=== PATIENT | male | born 1940 | race Caucasian/White ===

== ENCOUNTER 2017-01-02 06:43 | Outpatient (CLI) ==
[2015-09-02 12:59] VITALS: BMI 20.2
== END 2017-01-02 06:44 | disposition home or self-care (01) ==
LOC: CAR 06:43
PROVIDERS: ATTEND Internal Medicine
DX: R06.02 Shortness of breath (principal); J44.9 Chronic obstructive pulmonary disease, unspecified; I25.10 Atherosclerotic heart disease of native coronary artery without angina pectoris; I10 Essential (primary) hypertension
CPT/HCPCS: 93005; 93010

== ENCOUNTER 2017-01-06 06:45 | Outpatient (CLI) ==
[2015-09-02 12:59] VITALS: BMI 20.2
[2017-01-06] MEDS ORDERED: DOBUTAMINE 250 ML IV ONE (07:18)
[2017-01-06] MEDS ORDERED: ATROPINE SULFATE PFS ONE (07:18)
--- NOTE | 2017-01-06 10:22 | NM ---
EXAM: Myocardial perfusion imaging HISTORY: Shortness of breath COMPARISON: Myocardial imaging on 09/17/2013 showed no ischemia. Mildly prominent left ventricle. E jection fraction of 49%. TECHNIQUE: Patient was first injected 3.4 mCi of thallium 201 chloride intravenously while at rest. SPECT imaging of the heart was acquired. Patient was subsequently stressed using dobutamine protocol and injected 23.8 mCi of Tc99m Sestamibi intravenously. Another SPECT imaging of the heart was acqu ired. Gated cardiac study was performed. FINDINGS: Post stress images show normal left ventricular cavity size. Reduced perfusion is noted in volving the inferior wall, apex and contiguous septal wall. These areas show reperfusion. Anterior and lateral ceballos show normal perfusion. Left ventricular ejection fraction is 48% which shows no ch alo from previous examination. No definite wall motion abnormality is detected. IMPRESSION: 1. SPECT myocardial imaging shows mild degree of reversible ischemia involving the inferior wall, ap ex and contiguous septal wall. 2. Left ventricular ejection fraction of 48%. Previously it was 49%. No definite wall motion abnor mality.
== END 2017-01-06 06:46 | disposition home or self-care (01) ==
LOC: CAR 06:45
PROVIDERS: ATTEND Internal Medicine
DX: R06.02 Shortness of breath (principal); I25.10 Atherosclerotic heart disease of native coronary artery without angina pectoris; J44.9 Chronic obstructive pulmonary disease, unspecified; I10 Essential (primary) hypertension; Z01.810 Encounter for preprocedural cardiovascular examination

== ENCOUNTER 2017-03-07 14:06 | Outpatient (CLI) | payer OTHER ==
[2015-09-02 12:59] VITALS: BMI 20.2
== END 2017-03-07 14:07 | disposition home or self-care (01) ==
LOC: LAB 14:06
PROVIDERS: ATTEND Internal Medicine
DX: D64.9 Anemia, unspecified (principal)
CPT/HCPCS: 36415; 85025

== ENCOUNTER 2017-03-21 12:02 | Outpatient (CLI) ==
[2015-09-02 12:59] VITALS: BMI 20.2
--- NOTE | 2017-03-21 13:22 | US ---
EXAM: Bilateral lower extremity venous Doppler History: Bilateral lower extremity swelling. Technique: Multiple sonographic images through the bilateral lower extremities were obtained. Color duplex Doppler was used to interrogate vascular flow. Findings: The bilateral common femoral, profunda, superficial femoral, popliteal, peroneal, posterio r tibial and anterior tibial veins demonstrate spontaneous flow with normal compression and normal au gmentation. Partial flow with partial compression involving the distal right greater saphenous vein. Impression: 1. No sonographic evidence for deep venous thrombosis. 2. Superficial thrombophlebitis of the right greater saphenous vein.
== END 2017-03-21 12:03 | disposition home or self-care (01) ==
LOC: RAD 12:02
PROVIDERS: ATTEND Internal Medicine
DX: M79.605 Pain in left leg (principal); M79.604 Pain in right leg; M79.89 Other specified soft tissue disorders; I73.9 Peripheral vascular disease, unspecified; Z95.1 Presence of aortocoronary bypass graft

== ENCOUNTER 2017-04-28 12:44 | Outpatient (RCR) ==
[2017-04-28 13:20] VITALS: TEMP 98.4; BMI 21.6
[2017-05-14 13:23] VITALS: BP 130/58
== END 2017-05-17 ==
LOC: CAR.REHAB 12:44
PROVIDERS: ATTEND Internal Medicine
DX: Z95.1 Presence of aortocoronary bypass graft (principal)
CPT/HCPCS: 93798

== ENCOUNTER 2017-05-19 08:11 | Outpatient (RCR) ==
[2017-06-16 13:20] VITALS: BP 122/58
== END 2017-06-16 23:59 ==
LOC: CAR.REHAB 08:11
PROVIDERS: ATTEND Internal Medicine
DX: Z95.1 Presence of aortocoronary bypass graft (principal)
CPT/HCPCS: 93798

== ENCOUNTER 2017-06-17 07:54 | Outpatient (RCR) ==
[2017-07-09 13:22] VITALS: BP 132/54
== END 2017-07-17 23:59 ==
LOC: CAR.REHAB 07:54
PROVIDERS: ATTEND Internal Medicine
DX: Z95.1 Presence of aortocoronary bypass graft (principal)
CPT/HCPCS: 93798

== ENCOUNTER 2017-07-18 08:14 | Outpatient (RCR) ==
[2017-08-13 13:30] VITALS: BP 138/56
== END 2017-08-16 23:59 ==
LOC: CAR.REHAB 08:14
PROVIDERS: ATTEND Internal Medicine
DX: Z95.1 Presence of aortocoronary bypass graft (principal)
CPT/HCPCS: 93798

== ENCOUNTER 2017-08-18 07:22 | Outpatient (RCR) ==
[2017-09-15 13:21] VITALS: BP 118/56
== END 2017-09-16 23:59 ==
LOC: CAR.REHAB 07:22
PROVIDERS: ATTEND Internal Medicine
DX: Z95.1 Presence of aortocoronary bypass graft (principal)
CPT/HCPCS: 93798

== ENCOUNTER 2017-09-17 06:58 | Outpatient (RCR) ==
[2017-09-24 13:21] VITALS: BP 134/52
== END 2017-09-25 08:31 | disposition home or self-care (01) ==
LOC: CAR.REHAB 06:58
PROVIDERS: ATTEND Internal Medicine
DX: Z95.1 Presence of aortocoronary bypass graft (principal)
CPT/HCPCS: 93798

== ENCOUNTER 2019-07-22 13:19 | Observation (INO) ==
[2019-07-22] MEDS ORDERED: ATROPINE SULFATE PFS IVP PRN (13:42)
[2019-07-22] MEDS ORDERED: TYLENOL PO PRN (13:42)
[2019-07-22] MEDS ORDERED: NITROSTAT SL PRN (13:42)
[2019-07-22] MEDS ORDERED: VISTARIL INJ IM PRN (13:42)
[2019-07-22] MEDS ORDERED: NICODERM 14 MG TD SCH (14:00)
[2019-07-22 14:13] LABS: HEMATOCRIT 36.7 % (42.0-52.0)
[2019-07-22 14:14] VITALS: BMI 20.7
[2019-07-22] MEDS: TORADOL IVP SCH ×2 (15:12→21:08)
[2019-07-22] MEDS: NICODERM 21 MG TD SCH (15:12)
--- NOTE | 2019-07-22 15:12 | DI ---
EXAM: Frontal chest HISTORY: Shortness of breath FINDINGS: Compared to 09/11/2013. Cardiomegaly is slightly more noticeable. There is ectasia and a therosclerotic disease of the aorta again seen. Interval sternotomy wires. There is diffuse, chroni c appearing interstitial accentuation. Lungs are hyperinflated and there is relative lucency of the lung zones suggesting pulmonary emphysema. No acute infiltrates are seen. No vascular congestion. There is no consolidation, visible pleural fluid or pneumothorax. Bones reveal no acute fracture. IMPRESSION: Probable chronic obstructive pulmonary disease, correlate clinically. Cardiomegaly and atherosclerosis. No acute cardiopulmonary process.
[2019-07-22] MEDS: COREG PO SCH (17:05)
[2019-07-22] MEDS: ULTRAM PO SCH (20:04)
[2019-07-22] MEDS ORDERED: ULTRAM PO SCH ×2 (21:00)
[2019-07-22 21:36] VITALS: TEMP 97.8
[2019-07-23] MEDS: TORADOL IVP SCH (05:08)
[2019-07-23 05:32] VITALS: BP 144/82
[2019-07-23] MEDS: PROTONIX PO SCH ×2 (05:50→09:02)
[2019-07-23 05:57] LABS: HEMATOCRIT 39.3 % (42.0-52.0)
[2019-07-23] MEDS ORDERED: ASPIRIN EC PO SCH (08:30)
--- NOTE | 2019-07-23 08:59 | PCM.PROG ---
Attending Provider: ATTENDING PROVIDER: Dr. JORDON VIZCAINO This patient is seen with Adilia Romano, Nurse Practitioner. DATE OF SERVICE: 07/23/19 SUBJECTIVE: This 78 year old /WHITE M was hospitalized 07/22/19. The patient is lying in bed resting comfortably. He is alert. He reports his pain is con trolled with Ultram and Toradol. He is for renal ultrasound this morning. Discharge is pending appointment with [facility] at 11 a.m. REVIEW OF SYSTEMS: CONSTITUTIONAL: No night sweats. No fatigue, malaise, lethargy. No fever or chills. HEENT: Eyes: No visual changes. No eye pain. No eye discharge. ENT: No runny nose. No epistaxis. No sinus pain. No odynophagia. No congestion. RESPIRATORY: No cough, no congestion. No hemoptysis. No shortness of breath. CARDIOVASCULAR: No angina symptoms. No CHF symptoms. No atypical chest pain for CAD. No palpitations. No orthopnea.. GASTROINTESTINAL: No abdominal pain. No nausea or vomiting. No diarrhea or constipation. No hematemesis. No hematochezia. GENITOURINARY: No urgency. No frequency. No dysuria. No hematuria. No obstructive symptoms. No discharge. No pain. No significant abnormal bleeding. MUSCULOSKELETAL: Left hip pain. NEUROLOGICAL: Awake, alert, oriented to time, place and person. No headache. No neck pain. No syncope. No seizures. No dizziness. PSYCHIATRIC: Not anxious. No depression. No suicidal thoughts. No homicidal thoughts. SKIN: No rash. No lesions. No wounds. ENDOCRINE: No unexplained weight loss. No weight gain. HEMATOLOGIC/LYMPHATIC: No anemia. No purpura. No petechiae. No prolonged or excessive bleeding. No palpable lymph nodes. PHYSICAL EXAMINATION: GENERAL: The patient is awake, alert and oriented, lying in bed in no distress. VITAL SIGNS: Temperature 97.8 F, Pulse 69, Respiratory Rate 18, BP 144/82, Pulse Ox 93% HEENT: Head normocephalic, atraumatic. Eyes: Extraocular muscles are intact. Pupils are equal, round and reactive to light and accommodation. Ears: No lesions. Nose appeared normal. Throat: No exudate or erythema. NECK: Supple. No JVD, no carotid bruit. No lymphadenopathy or thyromegaly. LUNGS: Diminished breath sounds. Clear to auscultation. Percussion note normal. Chest symmetrical. HEART: S1, S2, no S3. No murmurs. No cyanosis or clubbing. No ascites. Pulses: Dorsalis pedis and posterior tibial pulses +1 to +2 both sides. ABDOMEN: Soft. Non-tender. Bowel sounds active. No CVA tenderness. No mass felt. EXTREMITIES: No edema. Full range of motion of all extremities, equal. NEUROLOGIC: No focal deficit. Cranial nerves II through XII are grossly intact. No headache, no double vision or headache. SKIN: Not dry. Intact. Turgor-normal. LYMPHATIC: No palpable lymph nodes/no lymphedema. MUSCULOSKELETAL: Normal joints with no swelling. Muscle tone is normal. LAB REVIEW: 07/23/19 05:25 07/23/19 05:25 07/23/19 05:25: Sodium 136.9, Potassium 4.44, Chloride 102.9, Carbon Dioxide 30.4 H, Anion Gap 8.04, BUN 26.1 H, Creatinine 1.23 H, Estimated GFR (MDRD) 57.00, BUN/Creatinine Ratio 21.21, Glucose 93.9, Calcium 10.21 H, Total Bilirubin 0.52, AST 27.1, ALT 8.4, Alkaline Phosphatase 83.5, Total Protein 7.21, Albumin 3.85, Globulin 3.36, Albumin/Globulin Ratio 1.14 07/23/19 05:25: WBC 8.53, RBC 4.13 L, Hgb 12.8 L, Hct 39.3 L, MCV 95.2 H, MCH 31.0, MCHC 32.6, RDW Coeff of Kevin 14.8, Plt Count 271, Immature Gran % (Auto) 0.4, Neut % (Auto) 60.3, Lymph % (Auto) 23.1, Turner % (Auto) 9.3, Eos % (Auto) 5.5, Baso % (Auto) 1.4, Neut # (Auto) 5.2, Lymph # (Auto) 2.0, Turner # (Auto) 0.8, Eos # (Auto) 0.5, Baso # (Auto) 0.1, Immature Gran # (Auto) 0.0 07/22/19 21:45: Sodium 138.2, Potassium 4.70, Chloride 104.0, Carbon Dioxide 31.2 H, Anion Gap 7.70, BUN 27.6 H, Creatinine 1.42 H, Estimated GFR (MDRD) 48.00, BUN/Creatinine Ratio 19.43, Glucose 85.5, Calcium 10.42 H, Total Bilirubin 0.42, AST 20.7, ALT 7.9, Alkaline Phosphatase 81.7, Total Creatine Kinase 40.7 L, Troponin I < 0.012, Total Protein 7.11, Albumin 3.87, Globulin 3.24, Albumin/Globulin Ratio 1.19, TSH 1.330 07/22/19 17:30: Urine Color Yellow, Urine Clarity Clear, Urine pH 7.0, Ur Specific [place] 1.020, Urine Protein Negative, Urine Glucose (UA) Negative, Urine Ketones Negative, Urine Blood Trace-intact H, Urine Nitrite Negative, Urine Bilirubin Negative, Urine Urobilinogen 0.2, Ur Leukocyte Esterase Negative, Urine Microscopic RBC 2-5, Urine Microscopic WBC 0-2, Ur Squamous Epith Cells 2-5, Urine Mucus Trace 07/22/19 14:07: Thyroxine (T4) 7.4 07/22/19 14:07: Total Creatine Kinase 39.0 L, Troponin I < 0.012 07/22/19 14:07: WBC 9.31, RBC 3.83 L, Hgb 12.1 L, Hct 36.7 L, MCV 95.8 H, MCH 31.6 H, MCHC 33.0, RDW Coeff of Kevin 15.2 H, Plt Count 244, Immature Gran % (Auto) 0.4, Neut % (Auto) 61.7, Lymph % (Auto) 24.1, Turner % (Auto) 8.2, Eos % (Auto) 4.5, Baso % (Auto) 1.1, Neut # (Auto) 5.8, Lymph # (Auto) 2.2, Turner # (Auto) 0.8, Eos # (Auto) 0.4, Baso # (Auto) 0.1, Immature Gran # (Auto) 0.0 ASSESSMENT: Please see below. 1. NONDISPLACED SUBCAPITAL FEMORAL NECK FRACTURE/FALL TWO WEEKS AGO 2. BILATERAL HIP PAIN LEFT WORSE THAN RIGHT STATUS POST FALL 07/07/19. 3. ABNORMAL RIGHT KIDNEY FINDINGS 4. HYPOKALEMIA 5. FLU SYNDROME 6. MILD HEMATOMA RIGHT NECK 7. STATUS POST RIGHT CAROTID SURGERY - DR. PETERS 03/05/19 8. STATUS POST CAROTID ENDARTERECTOMY - DR. PETERS 12/30/18 9. CARDIAC CATHETERIZATION 11/27/18 NORMAL - DR. PEGUERO 10. CABG'S 02/02 11. ABNORMAL STRESS TEST 12. BILATERAL SEVERE CAROTID ARTERY STENOSIS 13. STATUS POST ILIAC ARTERY STENT - DR. PETERS 14. OSTEOARTHRITIS KNEE 15. RENAL STENTS 16. DEPRESSION 17. DYSLIPIDEMIA 18. HYPERTENSION 19. CORONARY ARTERY DISEASE 20. CHRONIC BRONCHITIS 21. SMOKER 22. COPD, SEVERE 23. FORGETFULNESS 24. S/P A/A 25. BILATERAL SCIATICA 26. C-SPINE OSTEOARTHRITIS 27. CLAUDICATION 28. HISTORY OF AORTIC BYPASS 2009 29. STATUS POST BACK SURGERY . PTCA INSUFFICIENCY, COLOR 2009 PLAN: 1. Renal ultrasound today. 2. Anticipate discharge today. 3. Continue pain medications. 4. Appt with [facility] at 11 a.m. Plan and coordination of the patient's care discussed in the presence of Pharmacist'S Aide and nurse. CONDITION: Stable SCRIBED BY: EVA LINDA Machine Filler Servicer scribed while in presence of service performed by Dr. Vizcaino/Adilia Romano APRN on 07/23/19 ([id number])
[2019-07-23] MEDS ORDERED: NON-FORMULARY MEDICATION (Esomeprazole Magnesium [Nexium] 40 MG) PO SCH (09:00)
[2019-07-23] MEDS ORDERED: LIPITOR PO SCH (09:00)
[2019-07-23] MEDS ORDERED: ZOLOFT PO SCH (09:00)
[2019-07-23] MEDS ORDERED: PLAVIX PO SCH (09:00)
[2019-07-23] MEDS: ULTRAM PO SCH (09:02)
[2019-07-23] MEDS: COREG PO SCH (09:02)
[2019-07-23] MEDS: NICODERM 21 MG TD SCH (09:04)
--- NOTE | 2019-07-23 09:16 | HP ---
DATE OF SERVICE: 07/22/19 HISTORY OF PRESENT ILLNESS: 78-year-old male wiht abnormal left nondisplaced subcapital fracture of neck of femur. Abnormal right kidney CT scan report. Complains of pain in left hip, 2 to 6 on scale of 1-10. Two weeks ago was seen at [facility] ER. X- ray left hip is okay. No signs or symptoms of CHF/CAD. PAST MEDICAL HISTORY: History of hypokalemia COPD Hypertension Coronary artery disease Osteoarthritis knee Forgetfulness PAST SURGICAL HISTORY: Gallbladder Back/neck surgeries times two Heart stents Right carotid surgery Cardiac cath 11/27/18 CABG 02/02 Aorta bypass Renal stents REVIEW OF SYSTEMS: CONSTITUTIONAL: No night sweats. No fatigue, malaise, lethargy. No fever or chills. HEENT: Eyes: No visual changes. No eye pain. No eye discharge. ENT: No runny nose. No epistaxis. No sinus pain. No sore throat. No odynophagia. No ear pain. No congestion. RESPIRATORY: No cough, no congestion. No hemoptysis. No shortness of breath. CARDIOVASCULAR: No angina symptoms. No CHF symptoms. No atypical chest pain for CAD. No palpitations. No PND. No orthopnea. GASTROINTESTINAL: No abdominal pain. No nausea or vomiting. No diarrhea or constipation. No hematemesis. No hematochezia. GENITOURINARY: No urgency. No frequency. No dysuria. No hematuria. No obstructive symptoms. No discharge. No pain. No significant abnormal bleeding. MUSCULOSKELETAL: Osteoarthritic pain. . NEUROLOGICAL: No headache. No neck pain. No syncope. No seizures. No dizziness. PSYCHIATRIC: Not anxious. No depression. No suicidal thoughts. No homicidal thoughts. SKIN: No rash. No lesions. No wounds. ENDOCRINE: No unexplained weight loss. No weight gain. HEMATOLOGIC/LYMPHATIC: No anemia. No purpura. No petechiae. No prolonged or excessive bleeding. No palpable lymph nodes. PERSONAL/FAMILY/SOCIAL HISTORY: ; four healthy children; retired. No drug use. Occasional alcohol use. Smoking history - two packs per day. Family history: Father , strokes, heart. Mother , CA of lung and heart. No brothers. Two sisters. . MEDICATIONS: (HOME) ASA 81 mg one daily Lipitor 20 mg one daily Coreg 12.5 mg b.i.d. Plavix 75 mg one daily Nexium 40 mg one daily Zoloft 100 mg one daily Keflex 250 mg one t.i.d. Oxycodone 5/325 mg one q.6 hr p.r.n. Tramadol 50 mg b.i.d. #20 ALLERGIES: CODEINE, MORPHINE, LISINOPRIL, LOSARTAN, ATIVAN, ARICEPT PHYSICAL EXAMINATION: VITAL SIGNS: Pulse 67, BP 138/80, temperature 98.1, 02 sat 98%. Weight 150.4 lbs, Height 5'10". BMI 21.6. HEENT: Head normocephalic, atraumatic. Eyes: Extraocular muscles are intact. Pupils are equal, round and reactive to light and accommodation. Ears: No lesions. Nose appeared normal. Throat: No exudate or erythema. NECK: Supple. No JVD, no carotid bruit. No lymphadenopathy or thyromegaly. LUNGS: Clear to auscultation. Percussion note normal. Chest symmetrical. HEART: S1, S2, no S3. No murmur. No cyanosis or clubbing. No ascites. Pulses: Dorsalis pedis and posterior tibial pulses +1 to +2 bilaterally. ABDOMEN: Soft. Nontender. Bowel sounds active. No CVA tenderness. No mass felt. EXTREMITIES: No edema. Full range of motion of all extremities, equal. RECTAL: Prostate 2/20 (3.6). Colonoscopy: Dr. Schaffer, refused. NEUROLOGIC: No focal deficit. Cranial nerves II through XII are grossly intact. No headache, no double vision or headache. SKIN: Not dry. Intact. Turgor - normal. LYMPHATIC: No palpable lymph nodes/no lymphedema. MUSCULOSKELETAL: Normal joints with no swelling. Muscle tone is normal. ASSESSMENT: 1. NONDISPLACED SUBCAPITAL FEMORAL NECK FRACTURE/FALL TWO WEEKS AGO 2. BILATERAL HIP PAIN LEFT WORSE THAN RIGHT STATUS POST FALL 07/07/19. 3. ABNORMAL RIGHT KIDNEY FINDINGS 4. HYPOKALEMIA 5. FLU SYNDROME 6. MILD HEMATOMA RIGHT NECK 7. STATUS POST RIGHT CAROTID SURGERY - DR. PETERS 03/05/19 8. STATUS POST CAROTID ENDARTERECTOMY - DR. PETERS 12/30/18 9. CARDIAC CATHETERIZATION 11/27/18 NORMAL - DR. PEGUERO 10. CABG'S 02/02 11. ABNORMAL STRESS TEST 12. BILATERAL SEVERE CAROTID ARTERY STENOSIS 13. STATUS POST ILIAC ARTERY STENT - DR. PETERS 14. OSTEOARTHRITIS KNEE 15. RENAL STENTS 16. DEPRESSION 17. DYSLIPIDEMIA 18. HYPERTENSION 19. CORONARY ARTERY DISEASE 20. CHRONIC BRONCHITIS 21. SMOKER 22. COPD, SEVERE 23. FORGETFULNESS 24. S/P A/A 25. BILATERAL SCIATICA 26. C-SPINE OSTEOARTHRITIS 27. CLAUDICATION 28. HISTORY OF AORTIC BYPASS 2009 29. STATUS POST BACK SURGERY . PTCA INSUFFICIENCY, COLOR 2009 PLAN: 1. Admit. 2. Routine telemetry orders. 3. Toradol 15 mg IV 8 hours p.r.n. 4. Daily CBC, CMP. 5. TSH, T4. 6. US of right kidney. 7. Tramadol 50 mg p.o. t.i.d. daily. 8. Bedrest. 9. Up and about with help. 10. Continue all home medications 11. Orthopaedic consultation (clinic). TIME SPENT: More than 70 minutes. SANIYAD
--- NOTE | 2019-07-23 09:58 | CM.DICTOOL ---
ADMISSION: 07/22/19 13:19 DISCHARGE: JULY 23, 2019 DATE OF SERVICE: 07/23/19 FINAL DIAGNOSIS NONDISPLACED SUBCAPITAL LEFT FEMORAL NECK FRACTURE (PER PELVIS CT ON 07/20/2019) S/P FALL 07/05/2019) PAIN MANAGEMENT (HIP PAIN) MULTIPLE CYSTIC LESIONS, RIGHT RENAL DEGENERATIVE CHANGES LUMBAR SPINE OSTEOARTHRITIS HYPERTENSION COPD, SEVERE DYSLIPIDEMIA CAD DEPRESSION TOBACCO USE RIGHT HEMILAMINECTOMY, L5 AORTO-ILIAC ENDOVASCULAR STENT CAROTID ENDARTERECTOMY, BILATERAL 2019 (DR. PETERS) CABG, 2017 CARDIAC CATH, 2019 (NORMAL) )DR. PEGUERO) LAST VITALS Temp Pulse Resp BP Pulse Ox 97.8 F 69 18 144/82 H 93 L 07/23/19 05:31 07/23/19 05:31 07/23/19 05:31 07/23/19 05:31 07/23/19 05:31 TAKE THESE MEDICATIONS AT HOME Aspirin (Aspirin Ec) 81 mg PO DAILYWM [facility] Last Admin: 07/23/19 09:01 Dose: 81 mg Documented by: Atorvastatin Calcium (Lipitor) 20 mg PO DAILY [facility] Last Admin: 07/23/19 09:02 Dose: 20 mg Documented by: Carvedilol (Coreg) 12.5 mg PO BIDWM [facility] Last Admin: 07/23/19 09:02 Dose: 12.5 mg Documented by: Clopidogrel Bisulfate (Plavix) 75 mg PO DAILY [facility] Last Admin: 07/23/19 09:02 Dose: 75 mg Documented by: Esomeprazole Magnesium ( Nexium) 40 mg PO QDAC [facility] Last Admin: 07/23/19 09:02 Dose: 40 mg Documented by: Sertraline HCl (Zoloft) 100 mg PO DAILY [facility] Last Admin: 07/23/19 09:01 Dose: 100 mg Documented by: Tramadol HCl (Ultram) 50 mg PO BID [facility] Last Admin: 07/23/19 09:02 Dose: 50 mg Documented by: ALLERGIES codeine Adverse Reaction (Mild, Verified 07/07/19 08:47) donepezil [From Aricept] Adverse Reaction (Verified 07/22/19 14:05) gabapentin Adverse Reaction (Verified 07/22/19 14:10) lisinopril Adverse Reaction (Verified 07/22/19 14:05) lorazepam [From Ativan] Adverse Reaction (Verified 07/22/19 14:05) losartan Adverse Reaction (Verified 07/22/19 14:05) morphine Adverse Reaction (Verified 07/22/19 14:05) NO MEDICATION CHANGES NEW PRESCRIPTIONS: NO NEW PRESCRIPTIONS (RECEIVED RX FOR ULTRAM PRIOR TO ADMISSION) SMOKING: ADVISED REGARDING SMOKING CESSATION DISEASE SPECIFIC EDUCATION: APPOINTMENT TODAY WITH [facility] FOLLOW INSTRUCTIONS FOR ACTIVITY GIVEN BY [facility] APPOINTMENT FOR OUTPATIENT RENAL ULTRASOUND APPOINTMENT WITH DR. DAVILA LAB REVIEW: 07/23/19 05:25 07/23/19 05:25 07/23/19 05:25: Sodium 136.9, Potassium 4.44, Chloride 102.9, Carbon Dioxide 30.4 H, Anion Gap 8.04, BUN 26.1 H, Creatinine 1.23 H, Estimated GFR (MDRD) 57.00, BUN/Creatinine Ratio 21.21, Glucose 93.9, Calcium 10.21 H, Total Bilirubin 0.52, AST 27.1, ALT 8.4, Alkaline Phosphatase 83.5, Total Protein 7.21, Albumin 3.85, Globulin 3.36, Albumin/Globulin Ratio 1.14 07/23/19 05:25: WBC 8.53, RBC 4.13 L, Hgb 12.8 L, Hct 39.3 L, MCV 95.2 H, MCH 31.0, MCHC 32.6, RDW Coeff of Kevin 14.8, Plt Count 271, Immature Gran % (Auto) 0.4, Neut % (Auto) 60.3, Lymph % (Auto) 23.1, Dickinson % (Auto) 9.3, Eos % (Auto) 5.5, Baso % (Auto) 1.4, Neut # (Auto) 5.2, Lymph # (Auto) 2.0, Dickinson # (Auto) 0.8, Eos # (Auto) 0.5, Baso # (Auto) 0.1, Immature Gran # (Auto) 0.0 07/22/19 21:45: Sodium 138.2, Potassium 4.70, Chloride 104.0, Carbon Dioxide 31.2 H, Anion Gap 7.70, BUN 27.6 H, Creatinine 1.42 H, Estimated GFR (MDRD) 48.00, BUN/Creatinine Ratio 19.43, Glucose 85.5, Calcium 10.42 H, Total Bilirubin 0.42, AST 20.7, ALT 7.9, Alkaline Phosphatase 81.7, Total Creatine Ki nase 40.7 L, Troponin I < 0.012, Total Protein 7.11, Albumin 3.87, Globulin 3.24, Albumin/Globulin Ratio 1.19, TSH 1.330 07/22/19 17:30: Urine Color Yellow, Urine Clarity Clear, Urine pH 7.0, Ur Specific [place] 1.020, Urine Protein Negative, Urine Glucose (UA) Negative, Urine Ketones Negative, Urine Blood Trace-intact H, Urine Nitrite Negative, Urine Bilirubin Negative, Urine Urobilinogen 0.2, Ur Leukocyte Esterase Negative, Urine Microscopic RBC 2-5, Urine Microscopic WBC 0-2, Ur Squamous Epith Cells 2-5, Urine Mucus Trace 07/22/19 14:07: Thyroxine (T4) 7.4 07/22/19 14:07: Total Creatine Kinase 39.0 L, Troponin I < 0.012 07/22/19 14:07: WBC 9.31, RBC 3.83 L, Hgb 12.1 L, Hct 36.7 L, MCV 95.8 H, MCH 31.6 H, MCHC 33.0, RDW Coeff of Kevin 15.2 H, Plt Count 244, Immature Gran % (Auto) 0.4, Neut % (Auto) 61.7, Lymph % (Auto) 24.1, Dickinson % (Auto) 8.2, Eos % (Auto) 4.5, Baso % (Auto) 1.1, Neut # (Auto) 5.8, Lymph # (Auto) 2.2, Dickinson # (Auto) 0.8, Eos # (Auto) 0.4, Baso # (Auto) 0.1, Immature Gran # (Auto) 0.0 PLAN: DISCHARGE TODAY WITH DIET: REGULAR TOLERATED ACTIVITY: LIMIT AMBULATION FOR NOW; USE WALKER WHEN WALKING SHORT DISTANCES IN THE HOME FOLLOW ACTIVITY LIMITATIONS/PLAN SUGGESTED BY [facility] AN APPOINTMENT IS SCHEDULED FOR JULY 23, 2019 AT 11 AM AT [facility] WITH [facility]. AN APPOINTMENT IS SCHEDULED FOR July AT 9:30 AM AT [facility] FOR AN OUTPATIENT RENAL ULTRASOUND AN APPOINTMENT IS SCHEDULED FOR July AT 2:[address] DAVILA/MARIOLA IRVING APRN/OHANG JORDAN APRN CODE STATUS: FULL CODE MR. SEO IS ALERT AND ORIENTED X 4. HE IS SLIGHTLY HARD OF HEARING AND IS FORGETFUL. HE IS AWARE AND AGREEABLE TO DISCHARGE PLANS FOR THIS MORNING. HE IS AWARE AND AGREEABLE FOR OFFICE APPOINTMENT TODAY WITH [facility] IN [place], [place]. MRS. SEO IS AWARE OF APPOINTMENT AND REPORTS SHE IS FAMILIAR WITH THE LOCATION OF THE [facility]. SHE WILL PROVIDE TRANSPORTATION . MR. SEO IS INDEPENDENT WITH ADL'S. AT THIS TIME, HE IS USING A ROLLING WALKER FOR SHORT DISTANCE AMBULATION. HE REQUIRES ASSISTANCE OF ONE. HE DEMONSTRATES WEAKNESS TO THE LEFT LEG AND A SHUFFLING GAIT. SKIN CONDITION IS GOOD. HYDRATION STATUS IS GOOD. MEAL INTAKES ARE GOOD AT 50-100%. HE IS CONTINENT OF URINE AND BOWEL; USING THE URINAL AT THE BEDSIDE FOR VOIDING. MD ARMANDO VALDIVIA APRN
--- NOTE | 2019-07-23 12:40 | DS ---
DATE OF SERVICE: 07/23/2019 FINAL DIAGNOSIS: 1. NONDISPLACED SUBCAPITAL LEFT FEMORAL NECK FRACTURE (PER PELVIS CT ON 07/20/2019) 2. S/P FALL 07/05/2019) 3. PAIN MANAGEMENT (HIP PAIN) 4. MULTIPLE CYSTIC LESIONS, RIGHT RENAL 5. DEGENERATIVE CHANGES LUMBAR SPINE 6. OSTEOARTHRITIS 7. HYPERTENSION 8. COPD, SEVERE 9. DYSLIPIDEMIA 10.CAD 11.DEPRESSION 12.TOBACCO USE 13. RIGHT HEMILAMINECTOMY, L5 14. AORTO-ILIAC ENDOVASCULAR STENT 15. CAROTID ENDARTERECTOMY, BILATERAL 2019 (DR. PETERS) 16. CABG, 2016 17. CARDIAC CATH, 2019 (NORMAL) )DR. PEGUERO) LAST VITALS: Temp Pulse Resp BP Pulse Ox 97.8 F 69 18 144/82 H 93 L 07/23/19 05:31 07/23/19 05:31 07/23/19 05:31 07/23/19 05:31 07/23/19 05:31 DISCHARGE INSTRUCTIONS: DISCHARGE TODAY WITH . AN APPOINTMENT IS SCHEDULED FOR JULY 23, 2019 AT 11 AM AT [facility] WITH [facility] AN APPOINTMENT IS SCHEDULED FOR July AT 9:30 AM AT [facility] FOR AN OUTPATIENT RENAL ULTRASOUND. AN APPOINTMENT IS SCHEDULED FOR July AT 2:[address] DAVILA/MARIOLA IRVING APRN/HOANG JORDAN APRN. CODE STATUS: FULL CODE. TAKE THESE MEDICATIONS AT HOME: Aspirin (Aspirin Ec) 81 mg PO DAILYWM [facility] Last Admin: 07/23/19 09:01 Dose: 81 mg Documented by: Atorvastatin Calcium (Lipitor) 20 mg PO DAILY [facility] Last Admin: 07/23/19 09:02 Dose: 20 mg Documented by: Carvedilol (Coreg) 12.5 mg PO BIDWM [facility] Last Admin: 07/23/19 09:02 Dose: 12.5 mg Documented by: Clopidogrel Bisulfate (Plavix) 75 mg PO DAILY [facility] Last Admin: 07/23/19 09:02 Dose: 75 mg Documented by: Esomeprazole Magnesium ( Nexium) 40 mg PO QDAC [facility] Last Admin: 07/23/19 09:02 Dose: 40 mg Documented by: Sertraline HCl (Zoloft) 100 mg PO DAILY [facility] Last Admin: 07/23/19 09:01 Dose: 100 mg Documented by: Tramadol HCl (Ultram) 50 mg PO BID JOHN Last Admin: 07/23/19 09:02 Dose: 50 mg Documented by: ALLERGIES: codeine Adverse Reaction (Mild, Verified 07/07/19 08:47) donepezil [From Aricept] Adverse Reaction (Verified 07/22/19 14:05) gabapentin Adverse Reaction (Verified 07/22/19 14:10) lisinopril Adverse Reaction (Verified 07/22/19 14:05) lorazepam [From Ativan] Adverse Reaction (Verified 07/22/19 14:05) losartan Adverse Reaction (Verified 07/22/19 14:05) morphine Adverse Reaction (Verified 07/22/19 14:05) NO MEDICATION CHANGES NEW PRESCRIPTIONS: NO NEW PRESCRIPTIONS (RECEIVED RX FOR ULTRAM PRIOR TO ADMISSION) SMOKING: ADVISED REGARDING SMOKING CESSATION DISEASE SPECIFIC EDUCATION: APPOINTMENT TODAY WITH [facility] FOLLOW INSTRUCTIONS FOR ACTIVITY GIVEN BY [facility] APPOINTMENT FOR OUTPATIENT RENAL ULTRASOUND APPOINTMENT WITH DR. DAVILA LAB REVIEW: 07/23/19 05:25 07/23/19 05:25 07/23/19 05:25: Sodium 136.9, Potassium 4.44, Chloride 102.9, Carbon Dioxide 30.4 H, Anion Gap 8.04, BUN 26.1 H, Creatinine 1.23 H, Estimated GFR (MDRD) 57.00, BUN/Creatinine Ratio 21.21, Glucose 93.9, Calcium 10.21 H, Total Bilirubin 0.52, AST 27.1, ALT 8.4, Alkaline Phosphatase 83.5, Total Protein 7.21, Albumin 3.85, Globulin 3.36, Albumin/Globulin Ratio 1.14 07/23/19 05:25: WBC 8.53, RBC 4.13 L, Hgb 12.8 L, Hct 39.3 L, MCV 95.2 H, MCH 31.0, MCHC 32.6, RDW Coeff of Kevin 14.8, Plt Count 271, Immature Gran % (Auto) 0.4, Neut % (Auto) 60.3, Lymph % (Auto) 23.1, Logan % (Auto) 9.3, Eos % (Auto) 5.5, Baso % (Auto) 1.4, Neut # (Auto) 5.2, Lymph # (Auto) 2.0, Logan # (Auto) 0.8, Eos # (Auto) 0.5, Baso # (Auto) 0.1, Immature Gran # (Auto) 0.0 07/22/19 21:45: Sodium 138.2, Potassium 4.70, Chloride 104.0, Carbon Dioxide 31.2 H, Anion Gap 7.70, BUN 27.6 H, Creatinine 1.42 H, Estimated GFR (MDRD) 48.00, BUN/Creatinine Ratio 19.43, Glucose 85.5, Calcium 10.42 H, Total Bilirubin 0.42, AST 20.7, ALT 7.9, Alkaline Phosphatase 81.7, Total Creatine Kinase 40.7 L, Troponin I < 0.012, Total Protein 7.11, Albumin 3.87, Globulin 3.24, Albumin/Globulin Ratio 1.19, TSH 1.330 07/22/19 17:30: Urine Color Yellow, Urine Clarity Clear, Urine pH 7.0, Ur Specific [place] 1.020, Urine Protein Negative, Urine Glucose (UA) Negative, Urine Ketones Negative, Urine Blood Trace-intact H, Urine Nitrite Negative, Urine Bilirubin Negative, Urine Urobilinogen 0.2, Ur Leukocyte Esterase Negative, Urine Microscopic RBC 2-5, Urine Microscopic WBC 0-2, Ur Squamous Epith Cells 2-5, Urine Mucus Trace 07/22/19 14:07: Thyroxine (T4) 7.4 07/22/19 14:07: Total Creatine Kinase 39.0 L, Troponin I < 0.012 07/22/19 14:07: WBC 9.31, RBC 3.83 L, Hgb 12.1 L, Hct 36.7 L, MCV 95.8 H, MCH 31.6 H, MCHC 33.0, RDW Coeff of Kevin 15.2 H, Plt Count 244, Immature Gran % (Auto) 0.4, Neut % (Auto) 61.7, Lymph % (Auto) 24.1, Logan % (Auto) 8.2, Eos % (Auto) 4.5, Baso % (Auto) 1.1, Neut # (Auto) 5.8, Lymph # (Auto) 2.2, Logan # (Auto) 0.8, Eos # (Auto) 0.4, Baso # (Auto) 0.1, Immature Gran # (Auto) 0.0 DIET: REGULAR TOLERATED ACTIVITY: LIMIT AMBULATION FOR NOW; USE WALKER WHEN WALKING SHORT DISTANCES IN THE HOME FOLLOW ACTIVITY LIMITATIONS/PLAN SUGGESTED BY [facility] H[facility]ITAL COURSE: The patient was hospitalized with non displaced fracture of the left head of the femur. The patient's pain seems to be 2-4. He is able to walk with the walkers. He needs to be seen by Orthopedic surgeon today. The patient already had it happen two weeks ago. The patient is noncompliant. The patient is advised is to walk with the walker or followup orthopedic PD instructions. The patient was hospitalized under observation. He is going to have ultrasound of the kidneys done as an outpatient. He is noncompliant of his lifestyle and medications. He doesn't know anything about his medications in spite of repeated explanation. He doesn't understand his medical problems in spite explaining to him numerous times in the past. is quite helpless. PROGNOSIS: Poor. TIME SPENT: More than 60 minutes. GARLAND
--- NOTE | 2019-07-23 12:43 | PN ---
07/23/2019 Level 5 and D as in discharge MTDD
--- NOTE | 2019-08-04 10:17 | PN ---
DATE OF SERVICE: 07/23/19 SUBJECTIVE: This 78 year old /WHITE M was hospitalized 07/22/19. The patient is is seen and examined with the nurse practitioner. REVIEW OF SYSTEMS: CONSTITUTIONAL: No night sweats. No fatigue, malaise, lethargy. No fever or chills. HEENT: Eyes: No visual changes. No eye pain. No eye discharge. ENT: No runny nose. No epistaxis. No sinus pain. No odynophagia. No congestion. RESPIRATORY: No cough, no congestion. No hemoptysis. No shortness of breath. CARDIOVASCULAR: No angina symptoms. No CHF symptoms. No atypical chest pain for CAD. No palpitations. No orthopnea.. GASTROINTESTINAL: No abdominal pain. No nausea or vomiting. No diarrhea or constipation. No hematemesis. No hematochezia. GENITOURINARY: No urgency. No frequency. No dysuria. No hematuria. No obstructive symptoms. No discharge. No pain. No significant abnormal bleeding. MUSCULOSKELETAL: Left hip pain. NEUROLOGICAL: Awake, alert, oriented to time, place and person. No headache. No neck pain. No syncope. No seizures. No dizziness. PSYCHIATRIC: Not anxious. No depression. No suicidal thoughts. No homicidal thoughts. SKIN: No rash. No lesions. No wounds. ENDOCRINE: No unexplained weight loss. No weight gain. HEMATOLOGIC/LYMPHATIC: No anemia. No purpura. No petechiae. No prolonged or excessive bleeding. No palpable lymph nodes. PHYSICAL EXAMINATION: GENERAL: The patient is awake, alert and oriented, lying in bed in no distress. VITAL SIGNS: Temperature 97.8 F, Pulse 69, Respiratory Rate 18, BP 144/82, Pulse Ox 93% HEENT: Head normocephalic, atraumatic. Eyes: Extraocular muscles are intact. Pupils are equal, round and reactive to light and accommodation. Ears: No lesions. Nose appeared normal. Throat: No exudate or erythema. NECK: Supple. No JVD, no carotid bruit. No lymphadenopathy or thyromegaly. LUNGS: Diminished breath sounds. Clear to auscultation. Percussion note normal. Chest symmetrical. HEART: S1, S2, no S3. No murmurs. No cyanosis or clubbing. No ascites. Pulses: Dorsalis pedis and posterior tibial pulses +1 to +2 both sides. ABDOMEN: Soft. Non-tender. Bowel sounds active. No CVA tenderness. No mass felt. EXTREMITIES: No edema. Full range of motion of all extremities, equal. NEUROLOGIC: No focal deficit. Cranial nerves II through XII are grossly intact. No headache, no double vision or headache. SKIN: Not dry. Intact. Turgor-normal. LYMPHATIC: No palpable lymph nodes/no lymphedema. MUSCULOSKELETAL: Normal joints with no swelling. Muscle tone is normal. LAB REVIEW: 07/23/19 05:25 07/23/19 05:25 07/23/19 05:25: Sodium 136.9, Potassium 4.44, Chloride 102.9, Carbon Dioxide 30.4 H, Anion Gap 8.04, BUN 26.1 H, Creatinine 1.23 H, Estimated GFR (MDRD) 57.00, BUN/Creatinine Ratio 21.21, Glucose 93.9, Calcium 10.21 H, Total Bilirubin 0.52, AST 27.1, ALT 8.4, Alkaline Phosphatase 83.5, Total Protein 7.21, Albumin 3.85, Globulin 3.36, Albumin/Globulin Ratio 1.14 07/23/19 05:25: WBC 8.53, RBC 4.13 L, Hgb 12.8 L, Hct 39.3 L, MCV 95.2 H, MCH 31.0, MCHC 32.6, RDW Coeff of Kevin 14.8, Plt Count 271, Immature Gran % (Auto) 0.4, Neut % (Auto) 60.3, Lymph % (Auto) 23.1, [place] % (Auto) 9.3, Eos % (Auto) 5.5, Baso % (Auto) 1.4, Neut # (Auto) 5.2, Lymph # (Auto) 2.0, [place] # (Auto) 0.8, Eos # (Auto) 0.5, Baso # (Auto) 0.1, Immature Gran # (Auto) 0.0 07/22/19 21:45: Sodium 138.2, Potassium 4.70, Chloride 104.0, Carbon Dioxide 31.2 H, Anion Gap 7.70, BUN 27.6 H, Creatinine 1.42 H, Estimated GFR (MDRD) 48.00, BUN/Creatinine Ratio 19.43, Glucose 85.5, Calcium 10.42 H, Total Bilirubin 0.42, AST 20.7, ALT 7.9, Alkaline Phosphatase 81.7, Total Creatine Kinase 40.7 L, Troponin I < 0.012, Total Protein 7.11, Albumin 3.87, Globulin 3.24, Albumin/Globulin Ratio 1.19, TSH 1.330 07/22/19 17:30: Urine Color Yellow, Urine Clarity Clear, Urine pH 7.0, Ur Specific [place] 1.020, Urine Protein Negative, Urine Glucose (UA) Negative, Urine Ketones Negative, Urine Blood Trace-intact H, Urine Nitrite Negative, Urine Bilirubin Negative, Urine Urobilinogen 0.2, Ur Leukocyte Esterase Negative, Urine Microscopic RBC 2-5, Urine Microscopic WBC 0-2, Ur Squamous Epith Cells 2-5, Urine Mucus Trace 07/22/19 14:07: Thyroxine (T4) 7.4 07/22/19 14:07: Total Creatine Kinase 39.0 L, Troponin I < 0.012 07/22/19 14:07: WBC 9.31, RBC 3.83 L, Hgb 12.1 L, Hct 36.7 L, MCV 95.8 H, MCH 31.6 H, MCHC 33.0, RDW Coeff of Kevin 15.2 H, Plt Count 244, Immature Gran % (Auto) 0.4, Neut % (Auto) 61.7, Lymph % (Auto) 24.1, [place] % (Auto) 8.2, Eos % (Auto) 4.5, Baso % (Auto) 1.1, Neut # (Auto) 5.8, Lymph # (Auto) 2.2, [place]vert # (Auto) 0.8, Eos # (Auto) 0.4, Baso # (Auto) 0.1, Immature Gran # (Auto) 0.0 ASSESSMENT: Please see below. 1. NONDISPLACED SUBCAPITAL FEMORAL NECK FRACTURE/FALL TWO WEEKS AGO 2. BILATERAL HIP PAIN LEFT WORSE THAN RIGHT STATUS POST FALL 07/07/19. 3. ABNORMAL RIGHT KIDNEY FINDINGS 4. HYPOKALEMIA 5. FLU SYNDROME 6. MILD HEMATOMA RIGHT NECK 7. STATUS POST RIGHT CAROTID SURGERY - DR. PETERS 03/05/19 8. STATUS POST CAROTID ENDARTERECTOMY - DR. PETERS 12/30/18 9. CARDIAC CATHETERIZATION 11/27/18 NORMAL - DR. PEGUERO 10. CABG'S 02/02 11. ABNORMAL STRESS TEST 12. BILATERAL SEVERE CAROTID ARTERY STENOSIS 13. STATUS POST ILIAC ARTERY STENT - DR. PETERS 14. OSTEOARTHRITIS KNEE 15. RENAL STENTS 16. DEPRESSION 17. DYSLIPIDEMIA 18. HYPERTENSION 19. CORONARY ARTERY DISEASE 20. CHRONIC BRONCHITIS 21. SMOKER 22. COPD, SEVERE 23. FORGETFULNESS 24. S/P A/A 25. BILATERAL SCIATICA 26. C-SPINE OSTEOARTHRITIS 27. CLAUDICATION 28. HISTORY OF AORTIC BYPASS 2009 29. STATUS POST BACK SURGERY . PTCA INSUFFICIENCY, COLOR 2009 PLAN: 1. Renal ultrasound today. 2. Anticipate discharge today. 3. Continue pain medications. 4. Appt with [facility] at 11 a.m. GAR[place]
== END 2019-07-23 10:15 | disposition home or self-care (01) ==
LOC: MEDSURG B 13:19 → INTOOBSV 13:19
PROVIDERS: ADMIT Internal Medicine; ATTEND Internal Medicine

== ENCOUNTER 2020-11-16 13:18 | Inpatient (IN) ==
[2020-11-16] MEDS ORDERED: TORADOL IM STA (15:12)
--- NOTE | 2020-11-16 15:12 | ED.PDOC ---
General ED Provider: Dr. CRISTI QUINTANA Chief Complaint: Back Pain Stated Complaint: low back pain after falling at home. Ambulated to ER room Time Seen by Provider: 11/16/20 14:50 Mode of Arrival: Walk-In Information Source: Patient Exam Limitations: No limitations Primary Care Provider: JORDON DAVILA Nursing and Triage Documentation Reviewed and Agree: Yes Does patient meet sepsis criteria?: No If yes, has appropriate treatment been initiated?: No System Inflammatory Response Syndrome: Not Applicable Sepsis Protocol: For patient's 13 years and over: Temp is 96.8 and below OR 101 and greater Pulse >90 BPM Resp >20/minute Acutely Altered Mental Status Are patient's symptoms suggestive of a new infection, such as: -Pneumonia -Skin, Soft Tissue -Endocarditis -UTI -Bone, Joint Infection -Implantable Device -Acute Abdominal Infection -Wound Infection -Meningitis -Blood Stream Catheter Infection -Unknown Musculoskeletal Complaint Exam Back Pain Complaint/Exam Mechanism of Injury: Reports Trauma ( 1 DAY) Symptoms Are: Still present Timing: Constant Episodes Lasting: Hours Initial Severity: Moderate Current Severity: Moderate Location: Reports Diffuse Character: Reports Sharp, Aching, Spasmodic and Stiffness Aggravating: Reports Movements, Bending and Walking Alleviating: Reports None Associated Signs and Symptoms: Reports Weakness Related History: Reports Similar episode TAD Risk Factors: Reports None AAA Risk Factors: Reports None Cauda Equina Risk Factors: Reports None Epidural Abcess Risk Factors: Reports None Related Surgical History: Reports None Focal Tenderness: Yes Paraspinal Muscle Tenderness: Yes Paraspinal Muscle Spasm: Yes Scoliosis: No Lordosis: Yes Kyphosis: No SLR Test: Right Negative and Left Negative Hip Motion Testing Pain: Right Negative and Left Negative Focal Weakness: Present None Focal Sensory Loss: Present None Gait: Present Unsteady Differential Diagnoses: Fracture, Herniated Disk, Strain and Sprain Review of Systems Review Of Systems Constitutional: Reports No symptoms Eyes: Reports No symptoms Ears, Nose, Mouth, Throat: Reports No symptoms Respiratory: Reports No symptoms Cardiac: Reports No symptoms GI: Reports No symptoms : Reports No symptoms Musculoskeletal: Reports Back pain, Joint pain and Muscle pain Skin: Reports No symptoms Neurological: Reports No symptoms Endocrine: Reports No symptoms Hematologic/Lymphatic: Reports No symptoms All Other Systems: Reviewed and Negative [facility] Medical History (Updated 11/16/20 @ 16:53 by CRISTI QUINTANA DO) Abnormal stress electrocardiogram test Bilateral hip pain CAD (coronary artery disease) Carotid stenosis, bilateral Chronic bronchitis Claudication COPD (chronic obstructive pulmonary disease) Depression Dyslipidemia Flu syndrome Forgetfulness Hematoma Hypertension Hypokalemia Nondisplaced apophyseal fracture of left femur OA (osteoarthritis) of knee Osteoarthritis cervical spine Sciatica Family History (Updated 07/22/19 @ 14:02 by MAXIMILIAN MITCHELL RN) Mother Stroke Myocardial infarct FATHER Heart disease Lung cancer Social History Smoking and tobacco status: Current every day smoker Tobacco type: cigarettes Smoking packs per day: 2 Smoking cigarettes per day: 40.0 Surgical History H/O [id number] bypass History of cardiac catheterization History of cholecystectomy History of PTCA History of renal stent Hx of CABG Previous back surgery S/P carotid endarterectomy S/P insertion of iliac artery stent Status post carotid surgery Physical Exam Physical Exam Appearance: Reports Ill-appearing, No pain distress, Well-nourished and Thin Ill-appearing: Moderate Pain Distress: Moderate Eyes: Reports KILLIAN, EOMI and Conjunctiva clear ENT: Reports Ears normal, Nose normal and Oropharynx normal Neck: Supple Respiratory: Reports Airway patent, Breath sounds clear, Breath sounds equal and Respirations nonlabored Cardiovascular: Reports RRR, Pulses normal, No rub and No murmur GI/: Reports Soft, Nontender, No masses, Bowel sounds normal and No Organomegaly Musculoskeletal: Reports Normal strength, ROM intact, No edema and No calf tenderness Skin: Reports Warm, Dry and Normal color Neurological: Reports Sensation intact, Motor intact, Reflexes intact, Cranial nerves intact, Alert and Oriented Psychiatric: Reports Affect appropriate and Mood appropriate Critical Care Note Critical Care Note Total Critical Care Time (mins): 0 Course Course Hematology/Chemistry: 11/16/20 17:12 11/16/20 17:12 Orders, Labs, Meds: Lab Review 11/16/20 11/16/20 11/16/20 16:55 17:10 17:12 WBC 8.62 RBC 4.16 L Hgb 12.7 L Hct 39.4 L MCV 94.7 H MCH 30.5 MCHC 32.2 RDW Coeff of Kevin 16.1 H Plt Count 283 Immature Gran % (Auto) 0.3 Neut % (Auto) 60.2 Lymph % (Auto) 26.1 Archer % (Auto) 8.4 Eos % (Auto) 3.7 Baso % (Auto) 1.3 Neut # (Auto) 5.2 Lymph # (Auto) 2.3 Archer # (Auto) 0.7 Eos # (Auto) 0.3 Baso # (Auto) 0.1 Immature Gran # (Auto) 0.0 Puncture Site Rrad Base Excess 3.4 H O2 Saturation 84.3 L ABG pH 7.42 ABG pCO2 43.0 ABG pO2 48.0 L* ABG HCO3 27.9 ABG Total CO2 29.2 H Gabriele Test + Hemoglobin 1.3 Oxyhemoglobin 83.8 L Carboxyhemoglobin 6.4 H Total Hemoglobin 13.0 O2 Delivery Device Ra FiO2 % 21.0 Sodium Potassium Chloride Carbon Dioxide Anion Gap BUN Creatinine Estimated GFR (MDRD) BUN/Creatinine Ratio Glucose Calcium Total Bilirubin AST ALT Alkaline Phosphatase Total Protein Albumin Globulin Albumin/Globulin Ratio Urine Color Urine Clarity Urine pH Ur Specific [place] Urine Protein Urine Glucose (UA) Urine Ketones Urine Blood Urine Nitrite Urine Bilirubin Urine Urobilinogen Ur Leukocyte Esterase Urine Microscopic RBC Ur Squamous Epith Cells Adenovirus (PCR) Not detected B. pertussis DNA (PCR) Not detected B.parapertussis DNA PCR Not detected C. pneumoniae DNA (PCR) Not detected Coronavirus OC43 (PCR) Not detected Coronavirus HKU1 (PCR) Not detected Coronavirus 229E (PCR) Not detected Coronavirus NL63 (PCR) Not detected Human Metapneumovir PCR Not detected Influenza B (RT-PCR) Not detected M. pneumoniae (PCR) Not detected Parainfluenza 1 (PCR) Not detected Parainfluenza 2 (PCR) Not detected Parainfluenza 3 (PCR) Not detected Parainfluenza 4 (PCR) Not detected RSV (PCR) Not detected Entero/Rhino (PCR) Not detected SARS-CoV-2 (PCR) Not detected 11/16/20 11/16/20 17:12 17:35 WBC RBC Hgb Hct MCV MCH MCHC RDW Coeff of Kevin Plt Count Immature Gran % (Auto) Neut % (Auto) Lymph % (Auto) [place] % (Auto) Eos % (Auto) Baso % (Auto) Neut # (Auto) Lymph # (Auto) [place] # (Auto) Eos # (Auto) Baso # (Auto) Immature Gran # (Auto) Puncture Site Base Excess O2 Saturation ABG pH ABG pCO2 ABG pO2 ABG HCO3 ABG Total CO2 Gabriele Test Hemoglobin Oxyhemoglobin Carboxyhemoglobin Total Hemoglobin O2 Delivery Device FiO2 % Sodium 139.4 Potassium 4.55 Chloride 100.2 Carbon Dioxide 28.6 Anion Gap 15.15 BUN 18.2 Creatinine 1.19 H Estimated GFR (MDRD) 59.00 BUN/Creatinine Ratio 15.29 Glucose 91.7 Calcium 10.46 H Total Bilirubin 0.51 AST 28.3 ALT 7.9 Alkaline Phosphatase 110.8 Total Protein 8.17 Albumin 4.58 Globulin 3.59 Albumin/Globulin Ratio 1.27 Urine Color Yellow Urine Clarity Clear Urine pH 7.0 Ur Specific [place] 1.015 Urine Protein 2+ H Urine Glucose (UA) Negative Urine Ketones Negative Urine Blood Trace-intact H Urine Nitrite Negative Urine Bilirubin Negative Urine Urobilinogen 0.2 Ur Leukocyte Esterase Negative Urine Microscopic RBC 0-2 Ur Squamous Epith Cells Not present Adenovirus (PCR) B. pertussis DNA (PCR) B.parapertussis DNA PCR C. pneumoniae DNA (PCR) Coronavirus OC43 (PCR) Coronavirus HKU1 (PCR) Coronavirus 229E (PCR) Coronavirus NL63 (PCR) Human Metapneumovir PCR Influenza B (RT-PCR) M. pneumoniae (PCR) Parainfluenza 1 (PCR) Parainfluenza 2 (PCR) Parainfluenza 3 (PCR) Parainfluenza 4 (PCR) RSV (PCR) Entero/Rhino (PCR) SARS-CoV-2 (PCR) Orders Category Date Time Status ADMIT PATIENT INPATIENT .TO [facility] (MONITORED BED) ADMISSION 11/16/20 16:49 Active ABG DRAW REQUEST Stat CARDIO 11/16/20 16:55 Completed EKG-(ED ONLY) Stat CARDIO 11/16/20 16:55 Completed OXYGEN Routine CARDIO 11/16/20 16:56 Active ACTIVITY .BR with BRP CARE 11/16/20 16:57 Active BLOOD GLUCOSE MONITORING 0630,1100,1700,2100 CARE 11/16/20 16:58 Active INTAKE & OUTPUT Q8HR CARE 11/16/20 16:57 Active TELEMETRY MONITORING TELE CARE 11/16/20 16:50 Active VITAL SIGNS Q8HR CARE 11/16/20 16:57 Active REGULAR DIET DIETARY 11/16/20 Dinner Ordered IV [ED IV/MEDIPORT/POWERPORT] .ONCE EMERGENCY 11/16/20 16:56 Active ABG COOX Stat LAB 11/16/20 17:10 Completed CBC W/ AUTO DIFF Stat LAB 11/16/20 17:12 Completed CMP [COMPREHENSIVE METABOLIC PANEL] Stat LAB 11/16/20 17:12 Completed RESPIRATORY PANEL 2.1 (PCR) Stat LAB 11/16/20 16:55 Completed UA [URINALYSIS C & S IF INDICATED] Stat LAB 11/16/20 17:35 Completed 0.9 % Sodium Chloride [Saline Flush] MEDS 11/16/20 16:54 Active 1 syr IVF PRN PRN Acetaminophen [Tylenol] MEDS 11/16/20 16:54 Active 650 mg PO Q4H PRN Dexamethasone Sod Phosphate [Decadron] MEDS 11/16/20 17:00 Active 4 mg IVP Q8HR Enoxaparin Sodium [Lovenox] MEDS 11/16/20 16:54 Discontinued 40 mg SUBCUT ONCE STA Ketorolac Tromethamine [Toradol] MEDS 11/16/20 15:12 Discontinued 30 mg IM ONCE STA Ondansetron HCl/Pf [Zofran 4 mg/2 ml] MEDS 11/16/20 16:54 Active 4 mg IVP Q6H PRN Sodium Chloride 0.9% [Sodium Chloride] 1,000 ml MEDS 11/16/20 17:30 Active IV DAILY RESUSCITATION STATUS Routine OTHERS 11/16/20 16:54 Ordered CHEST, 1V AP ONLY Stat RADS 11/16/20 16:[address] LUMBAR SPINE W/O CONTRAST Stat RADS 11/16/20 15:[address] PELVIS W/O CONTRAST Stat RADS 11/16/20 15:12 Completed Medications Generic Name Dose Route Start Last Admin Trade Name Freq PRN Reason Stop Dose Admin Acetaminophen 650 mg 11/16/20 16:54 11/16/20 17:08 Acetaminophen 325 Mg Tablet PO 650 mg Q4H PRN Administration Fever >101 Dexamethasone Sodium Phosphate 4 mg 11/16/20 17:00 11/16/20 17:09 Dexamethasone Sod Phos 4 Mg/Ml Inj IVP 4 mg Q8HR JOHN Administration Sodium Chloride 1,000 mls @ 125 mls/hr 11/16/20 17:30 11/16/20 17:09 Sodium Chloride IV 125 mls/hr DAILY JOHN Administration Nicotine 1 patch 11/16/20 19:00 Nicotine 21 Mg Patch.Td24 TD DAILY JOHN Ondansetron HCl 4 mg 11/16/20 16:54 Ondansetron Hcl/Pf 4 Mg/2 Ml Sdv IVP Q6H PRN Nausea / Vomiting Sodium Chloride 1 syr 11/16/20 16:54 11/16/20 17:09 0.9% Sodium Chloride 10 Ml Disp.Syrin IVF 1 syr PRN PRN Administration To flush IV Discontinued Medications Generic Name Dose Route Start Last Admin Trade Name Freq PRN Reason Stop Dose Admin Enoxaparin Sodium 40 mg 11/16/20 16:54 11/16/20 17:08 Enoxaparin Sodium 40 Mg/0.4 Ml Syr SUBCUT 11/16/20 16:55 40 mg ONCE STA Administration Ketorolac Tromethamine 30 mg 11/16/20 15:12 11/16/20 15:20 Ketorolac Tromethamine 30 Mg/Ml Vial IM 11/16/20 15:13 30 mg ONCE STA Administration Vital Signs: Temp Pulse Resp BP Pulse Ox 11/16/20 13:19 96.4 F L 68 18 145/87 H 94 L Discharge Plan Discharge Patient Disposition: ADMITTED INPATIENT Discharge Problem: Acute low back pain, Compression fracture of L5 vertebra ED Provider: CRISTI QUINTANA Condition: Stable Physician Progress Note: []
--- NOTE | 2020-11-16 16:30 | CT ---
EXAM: CT Pelvis without contrast. HISTORY: Initial presentation for pelvic trauma. COMPARISON: 07/20/2019, 09/02/2015. TECHNIQUE: Multiple axial images of the pelvis were obtained without intravenous contrast. Images w ere reformatted in the coronal and sagittal plane. FINDINGS: Please note that evaluation of the pelvic soft tissue structures is limited due to lack of intravenous contrast. Pre percutaneous pins traverse the left femoral neck the hardware appears intact. There is no acute fracture or dislocation involving the pelvis or hips. Mild osteoarthritis of both hips. There is mild superior endplate compression of L5 with greatest involvement along the right anterior aspect on coronal image 41. No retropulsion. The lower lumbar degenerative changes incompletely maulik racterized. Right-sided L5 hemilaminectomy. Endo graft in the infrarenal aorta and iliac arteries noted. Incomplete characterization of exophyti c right renal masses. Diverticulosis noted. Bladder normal. No aneurysmal dilatation of the right greater than left common femoral arteries. No focal soft tissue abnormality is seen. IMPRESSION: 1. Acute appearing mild superior endplate compression fracture of L5. 2. No acute fracture or dislocation involving the pelvis. All CT scans are performed using dose optimization techniques as appropriate to the performed exam an d include at least one of the following: Automated exposure control, adjustment of the mA and/or kV according t o size, and the use of iterative reconstruction technique.
--- NOTE | 2020-11-16 16:34 | CT ---
EXAM: CT LUMBAR SPINE HISTORY: Back pain after fall TECHNIQUE: CT lumbar spine without contrast. 3-mm axial sections. Coronal and sagittal reformation s. COMPARISON: 07/07/2019 FINDINGS: Bones are demineralized. There is a newly developed mild superior endplate deformity of L5 consisten t with an acute compression fracture. There is no retropulsion and only minimal loss of vertebral fabián dy height. No other fractures are seen. No paraspinal fluid collection or hematoma. - - There is diffuse degenerative disc and facet disease becoming moderately severe at the lower lumbar s pine and lumbosacral junction where there is central canal stenosis at L4/L5 including severe left ne ural foraminal narrowing. There is bilateral neural foraminal narrowing at L5/S1 with at least mild central canal stenosis. There is no spondylolisthesis. - - Sacroiliac joints are intact with mild to moderate arthropathy. Incidental findings include atherosc lerotic disease and an aortobi-iliac stent graft plus fibrotic changes within the right lung base. IMPRESSION: 1. Mild acute compression fracture superior endplate at L5. No retropulsion or paraspinal hematoma. 2. Degenerative disc and facet disease 3. Atherosclerotic disease. Previous aortic repair by an aortobi-iliac stent graft. All CT scans are performed using dose optimization techniques as appropriate to the performed exam an d include at least one of the following: Automated exposure control, adjustment of the mA and/or kV according t o size, and the use of iterative reconstruction technique.
[2020-11-16] MEDS ORDERED: ZOFRAN 4 MG/2 ML IVP PRN (16:54)
[2020-11-16] MEDS ORDERED: TYLENOL PO PRN (16:54)
[2020-11-16] MEDS ORDERED: LOVENOX SUBCUT STA (16:54)
[2020-11-16 16:57] LABS: BORDETELLA PARAPERTUSSIS (PCR) NOT DETECTED (NOT DETECT); BORDETELLA PERTUSSIS (PCR) NOT DETECTED (NOT DETECT); CHLAMYDIA PNEUMONIAE (PCR) NOT DETECTED (NOT DETECT); CORONAVIRUS 229E (PCR) NOT DETECTED (NOT DETECT); CORONAVIRUS HKU1 (PCR) NOT DETECTED (NOT DETECT); CORONAVIRUS NL63 (PCR) NOT DETECTED (NOT DETECT); CORONAVIRUS OC43 (PCR) NOT DETECTED (NOT DETECT); HUMAN METAPNEUMOVIRUS (PCR) NOT DETECTED (NOT DETECT); HUMAN RHINOVIRUS/ENTEROV (PCR) NOT DETECTED (NOT DETECT); INFLUENZA B (PCR) NOT DETECTED (NOT DETECT); MYCOPLASMA PNEUMONIAE (PCR) NOT DETECTED (NOT DETECT); PARAINFLUENZA VIRUS 1 (PCR) NOT DETECTED (NOT DETECT); PARAINFLUENZA VIRUS 2 (PCR) NOT DETECTED (NOT DETECT); PARAINFLUENZA VIRUS 3 (PCR) NOT DETECTED (NOT DETECT); PARAINFLUENZA VIRUS 4 (PCR) NOT DETECTED (NOT DETECT); RESPIRATORY SYNCYTIAL V (PCR) NOT DETECTED (NOT DETECT); SARS_COV_2 (PCR) NOT DETECTED (NOT DETECT)
[2020-11-16] MEDS: DECADRON IVP SCH ×2 (17:09→21:57)
[2020-11-16] MEDS: SODIUM CHLORIDE 1,000 ML IV SCH (17:09)
[2020-11-16 17:17] LABS: BASOPHILS # (AUTO) 0.1 K/uL (0-0.2); BASOPHILS % (AUTO) 1.3 % (0.0-3.0); EOSINOPHILS # (AUTO) 0.3 K/ul (0.0-0.7); EOSINOPHILS % (AUTO) 3.7 % (0.0-7.0); HEMATOCRIT 39.4 % (42.0-52.0); HEMOGLOBIN 12.7 g/dl (14.0-18.0); IMMATURE GRANULOCYTE % (AUTO) 0.3 % (0.0-5.0); LYMPHOCYTES # (AUTO) 2.3 K/uL (0.60-3.4); LYMPHOCYTES % (AUTO) 26.1 (10.0-50.0); MEAN CORPUSCULAR HEMOGLOBIN 30.5 pg (27.0-31.0); MEAN CORPUSCULAR HGB CONC 32.2 (31.8-35.4); MEAN CORPUSCULAR VOLUME 94.7 fl (80.0-94.0); MONOCYTES # (AUTO) 0.7 K/uL (0.4-2.0); MONOCYTES % (AUTO) 8.4 (0-10); NEUTROPHILS # (AUTO) 5.2 K/ul (2.0-6.9); NEUTROPHILS % (AUTO) 60.2 % (42.2-75.2); PLATELET COUNT 283 10^3/uL (140-440); RDW COEFFICIENT OF VARIATION 16.1 % (11.6-14.8); RED BLOOD COUNT 4.16 10^6/ul (4.70-6.10); WHITE BLOOD COUNT 8.62 K/ul (4.2-10.2)
[2020-11-16 17:30] LABS: ALANINE AMINOTRANSFERASE 7.9 U/L (0-50); ALBUMIN 4.58 g/dL (3.5-5.0); ALKALINE PHOSPHATASE 110.8 U/L (56-119); ASPARTATE AMINO TRANSFERASE 28.3 U/L (17-59); BILIRUBIN,TOTAL 0.51 mg/dL (0.2-1.3); BLOOD UREA NITROGEN 18.2 mg/dL (9-20); CALCIUM 10.46 mg/dL (8.4-10.2); CARBON DIOXIDE 28.6 mmol/L (22-30.0); CHLORIDE 100.2 mmol/L (98-107); CREATININE 1.19 mg/dL (0.60-1.10); GLUCOSE 91.7 mg/dL (74-106); POTASSIUM 4.55 mmol/L (3.5-5.1); SODIUM 139.4 mmol/L (134.5-145); TOTAL PROTEIN 8.17 g/dL (6.3-8.2)
--- NOTE | 2020-11-16 17:30 | DI ---
EXAM: Frontal view of the chest. HISTORY: Coarse lung sounds, cough. COMPARISON: Chest radiograph 07/22/2019. FINDINGS: Calcific atherosclerosis. Status post coronary bypass. Normal heart size. Hyperexpanded lungs consistent with emphysema. Ill-defined focal opacity in the left upper lung. No visible effusion or pneumothorax. No acute osseous abnormality. IMPRESSION: 1. Focal opacity in the left upper lung could be a nodule. Recommend chest CT to further evaluate. 2. Emphysema. 3. Calcific atherosclerosis. Status post coronary bypass.
[2020-11-16 17:31] LABS: ABG O2 HGB 83.8 % (95-100); ABG PH 7.42 (7.35-7.45); BEecf 3.4 (-2.0-3.0); COHb 6.4 (0.5-1.5); HCO3 27.9 (21-28); MetHb 1.3 (0-1.5); TCO2 29.2 (19-24); sO2 84.3 % (94-98)
[2020-11-16 17:48] LABS: ADENOVIRUS (PCR) NOT DETECTED (NOT DETECT)
[2020-11-16 18:19] LABS: BILIRUBIN,URINE Negative (NEGATIVE); CLARITY,URINE Clear (CLEAR); COLOR,URINE Yellow (YELLOW); GLUCOSE, URINE (UA) Negative (NEGATIVE); KETONES,URINE Negative (NEGATIVE); LEUKOCYTE ESTERASE ,URINE Negative (NEGATIVE); NITRITE,URINE Negative (NEGATIVE); PROTEIN,URINE 2+ (NEGATIVE); URINE, BLOOD Trace-intact (NEGATIVE); UROBILINOGEN,URINE 0.2 (0.2)
[2020-11-16 18:22] LABS: SQUAMOUS EPITHELIAL CELL,UR NOT PRESENT (0-5); URINE RBC, MICROSCOPIC 0-2 (0-2)
[2020-11-16] MEDS: NICODERM 21 MG TD SCH (20:06)
[2020-11-16 21:16] VITALS: BMI 20.6
[2020-11-16] MEDS ORDERED: TORADOL IVP PRN (22:38)
[2020-11-17] MEDS: SODIUM CHLORIDE 1,000 ML IV SCH (02:01)
[2020-11-17 05:37] VITALS: TEMP 97.8
[2020-11-17 05:40] LABS: BASOPHILS % (AUTO) 0.4 % (0.0-3.0); HEMATOCRIT 36.3 % (42.0-52.0); HEMOGLOBIN 11.5 g/dl (14.0-18.0); IMMATURE GRANULOCYTE % (AUTO) 0.5 % (0.0-5.0); LYMPHOCYTES # (AUTO) 0.7 K/uL (0.60-3.4); LYMPHOCYTES % (AUTO) 11.6 (10.0-50.0); MEAN CORPUSCULAR HEMOGLOBIN 29.9 pg (27.0-31.0); MEAN CORPUSCULAR HGB CONC 31.7 (31.8-35.4); MEAN CORPUSCULAR VOLUME 94.3 fl (80.0-94.0); MONOCYTES # (AUTO) 0.1 K/uL (0.4-2.0); MONOCYTES % (AUTO) 0.9 (0-10); NEUTROPHILS # (AUTO) 4.9 K/ul (2.0-6.9); NEUTROPHILS % (AUTO) 86.6 % (42.2-75.2); PLATELET COUNT 270 10^3/uL (140-440); RDW COEFFICIENT OF VARIATION 15.6 % (11.6-14.8); RED BLOOD COUNT 3.85 10^6/ul (4.70-6.10)
[2020-11-17] MEDS: DECADRON IVP SCH (05:46)
[2020-11-17 05:55] LABS: ALANINE AMINOTRANSFERASE 8.2 U/L (0-50); ALBUMIN 3.91 g/dL (3.5-5.0); ALKALINE PHOSPHATASE 85.8 U/L (56-119); ASPARTATE AMINO TRANSFERASE 22.3 U/L (17-59); BILIRUBIN,TOTAL 0.36 mg/dL (0.2-1.3); BLOOD UREA NITROGEN 19.1 mg/dL (9-20); CALCIUM 9.89 mg/dL (8.4-10.2); CARBON DIOXIDE 26.1 mmol/L (22-30.0); CHLORIDE 104.3 mmol/L (98-107); CREATININE 1.11 mg/dL (0.60-1.10); GLUCOSE 179.3 mg/dL (74-106); POTASSIUM 4.07 mmol/L (3.5-5.1); SODIUM 138.7 mmol/L (134.5-145); TOTAL PROTEIN 7.01 g/dL (6.3-8.2)
[2020-11-17 07:31] VITALS: BP 159/89
[2020-11-17] MEDS: NICODERM 21 MG TD SCH (08:28)
[2020-11-17] MEDS ORDERED: LIPITOR PO SCH (09:00)
[2020-11-17] MEDS ORDERED: PEPCID PO SCH (09:00)
[2020-11-17] MEDS ORDERED: ARICEPT PO SCH (09:00)
[2020-11-17] MEDS ORDERED: PLAVIX PO SCH (09:00)
[2020-11-17] MEDS ORDERED: ASPIRIN CHEWABLE PO SCH (09:00)
[2020-11-17] MEDS ORDERED: COREG PO SCH (09:00)
--- NOTE | 2020-11-17 11:38 | PCM.PROG ---
Attending Provider: ATTENDING PROVIDER: Dr. JORDON VIZCAINO This patient is seen with Elle Stewart, Nurse Practitioner. DATE OF SERVICE: 11/17/20 SUBJECTIVE: This 80 year old /WHITE M was hospitalized 11/16/20. The patient is resting in bed. He is complaining of left lower back hurting with radiation of pain down both legs when walking or sitting - relieved with lying down. The patient has been seeing pain management for neck injections he has no retropulsion per CT. We are unable to do an MRI at this time, will do as outpatient. REVIEW OF SYSTEMS: CONSTITUTIONAL: No night sweats. No fatigue, malaise, lethargy. No fever or chills. HEENT: Eyes: No visual changes. No eye pain. No eye discharge. ENT: No runny nose. No epistaxis. No sinus pain. No odynophagia. No congestion. RESPIRATORY: No cough, no congestion. No hemoptysis. No shortness of breath. CARDIOVASCULAR: No angina symptoms. No CHF symptoms. No atypical chest pain for CAD. No palpitations. No orthopnea.. GASTROINTESTINAL: No abdominal pain. No nausea or vomiting. No diarrhea or constipation. No hematemesis. No hematochezia. GENITOURINARY: No urgency. No frequency. No dysuria. No hematuria. No obstructive symptoms. No discharge. No pain. No significant abnormal bleeding. MUSCULOSKELETAL: Back pain. Radiculopathy. NEUROLOGICAL: Awake, alert, oriented to time, place and person. No headache. No neck pain. No syncope. No seizures. No dizziness. PSYCHIATRIC: Not anxious. No depression. No suicidal thoughts. No homicidal thoughts. SKIN: No rash. No lesions. No wounds. ENDOCRINE: No unexplained weight loss. No weight gain. HEMATOLOGIC/LYMPHATIC: No anemia. No purpura. No petechiae. No prolonged or excessive bleeding. No palpable lymph nodes. PHYSICAL EXAMINATION: GENERAL: The patient is awake, alert and oriented, lying/sitting in bed in no distress. VITAL SIGNS: Temperature 97.8 F, Pulse 76, Respiratory Rate 18, BP 159/89, Pulse Ox 96% HEENT: Head normocephalic, atraumatic. Eyes: Extraocular muscles are intact. Pupils are equal, round and reactive to light and accommodation. Ears: No lesions. Nose appeared normal. Throat: No exudate or erythema. NECK: Supple. No JVD, no carotid bruit. No lymphadenopathy or thyromegaly. LUNGS: Diminished breath sounds. Clear to auscultation. Percussion note normal. Chest symmetrical. HEART: S1, S2, no S3. No murmurs. No cyanosis or clubbing. No ascites. Pulses: Dorsalis pedis and posterior tibial pulses +1 to +2 both sides. ABDOMEN: Soft. Non-tender. Bowel sounds active. No CVA tenderness. No mass felt. EXTREMITIES: No edema. Full range of motion of all extremities, equal. NEUROLOGIC: No focal deficit. Cranial nerves II through XII are grossly intact. No headache. No double vision. SKIN: Not dry. Intact. Turgor-normal. LYMPHATIC: No palpable lymph nodes/no lymphedema. MUSCULOSKELETAL: Normal joints with no swelling. Muscle tone is normal. LAB REVIEW: 11/17/20 05:01 11/17/20 05:01 11/17/20 05:01: Sodium 138.7, Potassium 4.07, Chloride 104.3, Carbon Dioxide 26. 1, Anion Gap 12.37, BUN 19.1, Creatinine 1.11 H, Estimated GFR (MDRD) 64.00, BUN/Creatinine Ratio 17.20, Glucose 179.3 H D, Calcium 9.89, Total Bilirubin 0.36, AST 22.3, ALT 8.2, Alkaline Phosphatase 85.8 D, Total Protein 7.01, Albumin 3.91, Globulin 3.10, Albumin/Globulin Ratio 1.26 11/17/20 05:01: WBC 5.60, RBC 3.85 L, Hgb 11.5 L, Hct 36.3 L, MCV 94.3 H, MCH 29.9, MCHC 31.7 L, RDW Coeff of Kevin 15.6 H, Plt Count 270, Immature Gran % (Auto) 0.5, Neut % (Auto) 86.6 H, Lymph % (Auto) 11.6, [place] % (Auto) 0.9, Eos % (Auto) 0.0, Baso % (Auto) 0.4, Neut # (Auto) 4.9, Lymph # (Auto) 0.7, [place] # (Auto) 0.1 L, Eos # (Auto) 0.0, Baso # (Auto) 0.0, Immature Gran # (Auto) 0.0 11/16/20 17:35: Urine Color Yellow, Urine Clarity Clear, Urine pH 7.0, Ur Specific [place] 1.015, Urine Protein 2+ H, Urine Glucose (UA) Negative, Urine Ketones Negative, Urine Blood Trace-intact H, Urine Nitrite Negative, Urine Bilirubin Negative, Urine Urobilinogen 0.2, Ur Leukocyte Esterase Negative, Urine Microscopic RBC 0-2, Ur Squamous Epith Cells Not present 11/16/20 17:12: Sodium 139.4, Potassium 4.55, Chloride 100.2, Carbon Dioxide 28.6, Anion Gap 15.15, BUN 18.2, Creatinine 1.19 H, Estimated GFR (MDRD) 59.00, BUN/Creatinine Ratio 15.29, Glucose 91.7, Calcium 10.46 H, Total Bilirubin 0.51, AST 28.3, ALT 7.9, Alkaline Phosphatase 110.8, Total Protein 8.17, Albumin 4.58, Globulin 3.59, Albumin/Globulin Ratio 1.27 11/16/20 17:12: WBC 8.62, RBC 4.16 L, Hgb 12.7 L, Hct 39.4 L, MCV 94.7 H, MCH 30.5, MCHC 32.2, RDW Coeff of Kevin 16.1 H, Plt Count 283, Immature Gran % (Auto) 0.3, Neut % (Auto) 60.2, Lymph % (Auto) 26.1, Lar[place] % (Auto) 8.4, Eos % (Auto) 3.7, Baso % (Auto) 1.3, Neut # (Auto) 5.2, Lymph # (Auto) 2.3, [place] # (Auto) 0.7, Eos # (Auto) 0.3, Baso # (Auto) 0.1, Immature Gran # (Auto) 0.0 11/16/20 17:10: Puncture Site Rrad, Base Excess 3.4 H, O2 Saturation 84.3 L, ABG pH 7.42, ABG pCO2 43.0, ABG pO2 48.0 L*, ABG HCO3 27.9, ABG Total CO2 29.2 H, Gabriele Test +, Hemoglobin 1.3, Oxyhemoglobin 83.8 L, Carboxyhemoglobin 6.4 H, Tot al Hemoglobin 13.0, O2 Delivery Device Ra, FiO2 % 21.0 11/16/20 16:55: Adenovirus (PCR) Not detected, B. pertussis DNA (PCR) Not detected, B.parapertussis DNA PCR Not detected, C. pneumoniae DNA (PCR) Not detected, Coronavirus OC43 (PCR) Not detected, Coronavirus HKU1 (PCR) Not detected, Coronavirus 229E (PCR) Not detected, Coronavirus NL63 (PCR) Not detected, Human Metapneumovir PCR Not detected, Influenza B (RT-PCR) Not detected, M. pneumoniae (PCR) Not detected, Parainfluenza 1 (PCR) Not detected, Parainfluenza 2 (PCR) Not detected, Parainfluenza 3 (PCR) Not detected, Parainfluenza 4 (PCR) Not detected, RSV (PCR) Not detected, Entero/Rhino (PCR) Not detected, SARS-CoV-2 (PCR) Not detected ASSESSMENT: Please see below. 1. Mild acute compression fracture superior endplate at L5 with no retropulsion. 2. Acute low back pain. 3. End-stage COPD. 4. Peripheral arterial disease. 5. Smoker. PLAN: 1. 1 cc Decadron IM daily. 2. Toradol p.r.n. 3. Refer to Dr. Roy. 4. [place] 5 mg b.i.d. JOHN. Plan and coordination of the patient's care discussed in the presence of Basket Weaver and nurse. CONDITION: Stable SCRIBED BY: EVA LINDA, E Commerce Strategist scribed while in presence of service performed by Dr. Vizcaino/Elle Stewart APRN on 11/17/20 ([id number])
--- NOTE | 2020-11-17 11:40 | AMA ---
DATE OF SERVICE: 11/17/20 The patient is upset about our inability to fix his compression fracture today and stated he will sign out AMA. Plan and coordination of the patient's care discussed in the presence of Book Solicitor and nurse. CONDITION: Stable SCRIBED BY: EVA LINDA Chainstitch Sewing Machine Operator scribed while in presence of service performed by Dr. Vizcaino/Elle Stewart APRN on 11/17/20 ([id number]) MTDD
[2020-11-17] MEDS ORDERED: ZOLOFT PO SCH (21:00)
--- NOTE | 2020-11-20 10:57 | PN ---
11/16/2020: Level 5 11/17/2020: D as in discharge MTDD
--- NOTE | 2020-11-20 10:57 | PN ---
DATE OF SERVICE: 11/17/2020 SUBJECTIVE: The patient condition is stable and his fracture spine complicated. The patient is very abusive in his language and behavior. He was admitted for pain control. He wants surgery done right away on his back. He just doesn't understand that it just doesn't happen that way. He had some choice words to use. Looks like that he is going to sign out AMA. The patient is noncompliant of all aspects of medical care. Most of his medical problems he depends a lot on his who is helpless. TIME SPENT: More than 30 minutes. Plan and coordination of the patient's care discussed in the presence of nurse. GARLAND
--- NOTE | 2020-11-20 11:00 | PN ---
DATE OF SERVICE: 11/16/2020 SUBJECTIVE: The patient was hospitalized through the emergency room with complaint of having back pain. The patient had fallen at home and had new compression fracture which is uncomplicated. The patient is going to be hospitalized for pain management. It was discussed with Dr. Anderson who is in the emergency room. The patient's cardiovascular and respiratory status is stable. COVID status is pending. The patient has multiple end stage medical problems like peripheral arterial disease, coronary artery disease, severe chronic lung disease, osteoporosis, malnutrition, heavy smoking, dementia vascular. Mostly taken care of by the . She does most of the talking and also administration of his medications. The patient practically has no idea about his medical condition and problems. TIME SPENT: More than 30 minutes. Plan and coordination of the patient's care discussed in the presence of nurse. GARLAND
== END 2020-11-17 10:35 | disposition left against medical advice (07) | DRG 552 ==
LOC: ED 13:18 → MEDSURG A 17:58
PROVIDERS: ADMIT Internal Medicine; ATTEND Internal Medicine

== ENCOUNTER 2022-01-21 10:13 | Inpatient (IN) ==
[2022-01-21 11:26] LABS: SARS COV-2 RNA RAPID NAAT NEGATIVE (NEGATIVE)
[2022-01-21] MEDS ORDERED: ATROPINE SULFATE PFS IVP PRN (12:16)
[2022-01-21] MEDS ORDERED: NITROSTAT SL PRN (12:16)
[2022-01-21] MEDS ORDERED: TYLENOL PO PRN (12:16)
[2022-01-21] MEDS ORDERED: DECADRON IM ONE (12:23)
[2022-01-21 12:59] LABS: BASOPHILS # (AUTO) 0.1 K/uL (0-0.2); BASOPHILS % (AUTO) 0.7 % (0.0-3.0); EOSINOPHILS # (AUTO) 0.2 K/ul (0.0-0.7); EOSINOPHILS % (AUTO) 1.6 % (0.0-7.0); HEMATOCRIT 36.3 % (42.0-52.0); HEMOGLOBIN 11.5 g/dl (14.0-18.0); IMMATURE GRANULOCYTE # (AUTO) 0.1 (0.0-1.0); IMMATURE GRANULOCYTE % (AUTO) 0.5 % (0.0-5.0); LYMPHOCYTES # (AUTO) 1.7 K/uL (0.60-3.4); LYMPHOCYTES % (AUTO) 14.2 (10.0-50.0); MEAN CORPUSCULAR HEMOGLOBIN 29.5 pg (27.0-31.0); MEAN CORPUSCULAR HGB CONC 31.7 (31.8-35.4); MEAN CORPUSCULAR VOLUME 93.1 fl (80.0-94.0); MONOCYTES # (AUTO) 0.7 K/uL (0.4-2.0); MONOCYTES % (AUTO) 5.6 (0-10); NEUTROPHILS # (AUTO) 9.2 K/ul (2.0-6.9); NEUTROPHILS % (AUTO) 77.4 % (42.2-75.2); PLATELET COUNT 261 10^3/uL (140-440); RDW COEFFICIENT OF VARIATION 14.6 % (11.6-14.8); WHITE BLOOD COUNT 11.93 K/ul (4.2-10.2)
[2022-01-21] MEDS ORDERED: NORCO 7.5-325 PO PRN (12:59)
[2022-01-21] MEDS ORDERED: ZOFRAN ODT PO PRN (12:59)
[2022-01-21] MEDS ORDERED: NON-FORMULARY MEDICATION (Tizanidine 4 mg Capsule) PO PRN (12:59)
[2022-01-21] MEDS ORDERED: ZANAFLEX PO PRN (13:10)
[2022-01-21 13:13] LABS: ALBUMIN 4.56 g/dL (3.5-5.0); ALKALINE PHOSPHATASE 77.4 U/L (56-119); BILIRUBIN,TOTAL 0.39 mg/dL (0.2-1.3); BLOOD UREA NITROGEN 48.8 mg/dL (9-20); CALCIUM 11.36 mg/dL (8.4-10.2); CARBON DIOXIDE 24.9 mmol/L (22-30.0); CREATINE KINASE 28.4 U/L (55-170); CREATININE 1.42 mg/dL (0.60-1.10); GLUCOSE 133.2 mg/dL (74-106); POTASSIUM 4.41 mmol/L (3.5-5.1); SODIUM 141.5 mmol/L (134.5-145); TOTAL PROTEIN 8.62 g/dL (6.3-8.2)
[2022-01-21 13:31] LABS: TROPONIN I < 0.012 ng/ml (0.0000-0.120)
--- NOTE | 2022-01-21 14:12 | DI ---
EXAM: Chest one view, frontal view only. HISTORY: Shortness of breath. COMPARISON: 11/16/2020. FINDINGS: CABG hardware noted. Heart size is at the upper limits normal. Atherosclerotic calcifica tions within the aorta. Stable chronic interstitial opacities. Calcified pleural plaquing noted. C alcified granulomata. No consolidation, pleural effusion or pneumothorax. No acute osseous abnormal ity. IMPRESSION: Stable chronic changes.
[2022-01-21] MEDS: SODIUM CHLORIDE 1,000 ML IV SCH (14:23)
[2022-01-21] MEDS: ROCEPHIN 1 GM/50 ML D5W 1 GM/50 ML BAG IV SCH (14:24)
[2022-01-21] MEDS: ZITHROMAX PO SCH (14:30)
[2022-01-21 15:18] LABS: BILIRUBIN,URINE Negative (NEGATIVE); CLARITY,URINE Clear (CLEAR); COLOR,URINE Yellow (YELLOW); GLUCOSE, URINE (UA) Negative (NEGATIVE); KETONES,URINE Negative (NEGATIVE); LEUKOCYTE ESTERASE ,URINE Negative (NEGATIVE); NITRITE,URINE Negative (NEGATIVE); PH,URINE 5.5 (5-9); PROTEIN,URINE 2+ (NEGATIVE); URINE, BLOOD Negative (NEGATIVE); UROBILINOGEN,URINE 0.2 (0.2)
[2022-01-21 15:25] LABS: SQUAMOUS EPITHELIAL CELL,UR 20-30 (0-5)
[2022-01-21 15:26] LABS: MUCUS,URINE 1+ (NOT PRESENT)
[2022-01-21 15:36] VITALS: BMI 19.8
[2022-01-21 16:46] LABS: MOLECULAR FLU A NEGATIVE BY NAAT (NEGATIVE); MOLECULAR FLU B NEGATIVE BY NAAT (NEGATIVE)
[2022-01-21 16:46] LABS: RSV MOLECULAR NEGATIVE BY NAAT (NEGATIVE)
[2022-01-21] MEDS: COREG PO SCH (17:31)
[2022-01-21] MEDS: PROTONIX PO SCH (17:31)
[2022-01-21] MEDS: PEPCID PO SCH (17:31)
[2022-01-21] MEDS: NICODERM 21 MG TD SCH (17:31)
[2022-01-21] MEDS: ZOLOFT PO SCH (20:19)
[2022-01-21 20:45] LABS: CREATINE KINASE 31.8 U/L (55-170)
[2022-01-21 20:59] LABS: TROPONIN I < 0.012 ng/ml (0.0000-0.120)
[2022-01-22] MEDS: SODIUM CHLORIDE 1,000 ML IV SCH ×2 (03:53→18:19)
[2022-01-22 05:28] LABS: BASOPHILS % (AUTO) 0.3 % (0.0-3.0); HEMATOCRIT 34.6 % (42.0-52.0); IMMATURE GRANULOCYTE % (AUTO) 0.3 % (0.0-5.0); LYMPHOCYTES # (AUTO) 1.3 K/uL (0.60-3.4); LYMPHOCYTES % (AUTO) 13.6 (10.0-50.0); MEAN CORPUSCULAR HEMOGLOBIN 29.3 pg (27.0-31.0); MEAN CORPUSCULAR HGB CONC 31.8 (31.8-35.4); MEAN CORPUSCULAR VOLUME 92.3 fl (80.0-94.0); MONOCYTES # (AUTO) 0.5 K/uL (0.4-2.0); MONOCYTES % (AUTO) 5.8 (0-10); NEUTROPHILS # (AUTO) 7.3 K/ul (2.0-6.9); PLATELET COUNT 239 10^3/uL (140-440); RDW COEFFICIENT OF VARIATION 14.5 % (11.6-14.8); RED BLOOD COUNT 3.75 10^6/ul (4.70-6.10); WHITE BLOOD COUNT 9.17 K/ul (4.2-10.2)
[2022-01-22] MEDS: PROTONIX PO SCH ×2 (05:31→18:14)
[2022-01-22] MEDS: PEPCID PO SCH ×2 (05:31→18:14)
[2022-01-22 05:39] LABS: ALANINE AMINOTRANSFERASE 14.2 U/L (0-50); ALBUMIN 4.45 g/dL (3.5-5.0); ASPARTATE AMINO TRANSFERASE 37.6 U/L (17-59); BILIRUBIN,TOTAL 0.41 mg/dL (0.2-1.3); BLOOD UREA NITROGEN 37.2 mg/dL (9-20); CALCIUM 10.79 mg/dL (8.4-10.2); CARBON DIOXIDE 25.4 mmol/L (22-30.0); CHLORIDE 108.3 mmol/L (98-107); CREATININE 1.1 mg/dL (0.60-1.10); GLUCOSE 111.1 mg/dL (74-106); POTASSIUM 4.3 mmol/L (3.5-5.1); SODIUM 141.1 mmol/L (134.5-145); TOTAL PROTEIN 8.31 g/dL (6.3-8.2)
[2022-01-22] MEDS ORDERED: DECADRON IM ONE (08:31)
[2022-01-22] MEDS ORDERED: ARICEPT PO SCH (09:00)
[2022-01-22] MEDS: PLAVIX PO SCH (09:02)
[2022-01-22] MEDS: COREG PO SCH ×2 (09:02→18:14)
[2022-01-22] MEDS: ZITHROMAX PO SCH (09:02)
[2022-01-22] MEDS: ASPIRIN CHEWABLE PO SCH (09:03)
[2022-01-22] MEDS: CRESTOR PO SCH (09:03)
[2022-01-22] MEDS: NAMENDA PO SCH (09:04)
[2022-01-22] MEDS: NICODERM 21 MG TD SCH ×2 (09:04→11:21)
--- NOTE | 2022-01-22 09:29 | PCM.PROG ---
Attending Provider: ATTENDING PROVIDER: Dr. JORDON DAVILA MD This patient is seen with Elle Stewart, Nurse Practitioner. DATE OF SERVICE: 01/22/22 SUBJECTIVE: This 81 year old /WHITE M was hospitalized 01/21/22. U/A was normal. Chest x-ray showed COPD. The patient is more alert this morning. He is being difficult pulling out IV, refusing telemetry. He is intermittently confused. REVIEW OF SYSTEMS: CONSTITUTIONAL: No night sweats.Fatigue. No fever or chills. Weakness. HEENT: Eyes: No visual changes. No eye pain. No eye discharge. ENT: No runny nose. No epistaxis. No sinus pain. No odynophagia. No congestion. RESPIRATORY: Cough, no congestion. No hemoptysis. No shortness of breath. CARDIOVASCULAR: No angina symptoms. No CHF symptoms. No atypical chest pain for CAD. No palpitations. No orthopnea.. GASTROINTESTINAL: No abdominal pain. No nausea or vomiting. No diarrhea or constipation. No hematemesis. No hematochezia. GENITOURINARY: No urgency. No frequency. No dysuria. No hematuria. No obstructive symptoms. No discharge. No pain. No significant abnormal bleeding. MUSCULOSKELETAL: No musculoskeletal pain; no joint swelling. NEUROLOGICAL: Awake, alert, oriented to time, place and person. No headache. No neck pain. No syncope. No seizures. No dizziness. PSYCHIATRIC: Not anxious. No depression. No suicidal thoughts. No homicidal thoughts. SKIN: No rash. No lesions. No wounds. ENDOCRINE: No unexplained weight loss. No weight gain. HEMATOLOGIC/LYMPHATIC: No anemia. No purpura. No petechiae. No prolonged or excessive bleeding. No palpable lymph nodes. PHYSICAL EXAMINATION: GENERAL: The patient is awake, alert and oriented to person and place, lying in bed in no distress. VITAL SIGNS: Temperature 97.3 F, Pulse 100, Respiratory Rate 20, BP 175/96, Pulse Ox 97% HEENT: Head normocephalic, atraumatic. Eyes: Extraocular muscles are intact. Pupils are equal, round and reactive to light and accommodation. Ears: No lesions. Nose appeared normal. Throat: No exudate or erythema. NECK: Supple. No JVD, no carotid bruit. No lymphadenopathy or thyromegaly. LUNGS: Diminished breath sounds. Clear to auscultation. Percussion note normal. Chest symmetrical. HEART: S1, S2, no S3. No murmurs. No cyanosis or clubbing. No ascites. Pulses: Dorsalis pedis and posterior tibial pulses +1 to +2 both sides. ABDOMEN: Soft. Non-tender. Bowel sounds active. No CVA tenderness. No mass felt. EXTREMITIES: No edema. Full range of motion of all extremities, equal. NEUROLOGIC: No focal deficit. Cranial nerves II through XII are grossly intact. No headache. No double vision. SKIN: Not dry. Intact. Turgor-normal. LYMPHATIC: No palpable lymph nodes/no lymphedema. MUSCULOSKELETAL: Normal joints with no swelling. Muscle tone is normal. LAB REVIEW: 01/22/22 05:20 01/22/22 05:20 01/22/22 05:20: Sodium 141.1, Potassium 4.30, Chloride 108.3 H, Carbon Dioxide 25.4, Anion Gap 11.70, BUN 37.2 H, Creatinine 1.10, Estimated GFR (MDRD) 64.00, BUN/Creatinine Ratio 33.81, Glucose 111.1 H, Calcium 10.79 H, Total Bilirubin 0.41, AST 37.6, ALT 14.2, Alkaline Phosphatase 73.0, Total Protein 8.31 H, Albumin 4.45, Globulin 3.86, Albumin/Globulin Ratio 1.15 01/22/22 05:20: WBC 9.17, RBC 3.75 L, Hgb 11.0 L, Hct 34.6 L, MCV 92.3, MCH 29.3, MCHC 31.8, RDW Coeff of Kevin 14.5, Plt Count 239, Immature Gran % (Auto) 0.3, Neut % (Auto) 80.0 H, Lymph % (Auto) 13.6, [place] % (Auto) 5.8, Eos % (Auto) 0.0, Baso % (Auto) 0.3, Neut # (Auto) 7.3 H, Lymph # (Auto) 1.3, [place] # (Auto) 0.5, Eos # (Auto) 0.0, Baso # (Auto) 0.0, Immature Gran # (Auto) 0.0 01/21/22 20:30: Total Creatine Kinase 31.8 L, Troponin I < 0.012 01/21/22 14:40: Urine Color Yellow, Urine Clarity Clear, Urine pH 5.5, Ur Speci fic [place] 1.025, Urine Protein 2+ H, Urine Glucose (UA) Negative, Urine K etones Negative, Urine Blood Negative, Urine Nitrite Negative, Urine Bilirubin Negative, Urine Urobilinogen 0.2, Ur Leukocyte Esterase Negative, Ur Squamous Epith Cells 20-30, Urine Mucus 1+ 01/21/22 12:43: Sodium 141.5, Potassium 4.41, Chloride 106.0, Carbon Dioxide 24.9, Anion Gap 15.01, BUN 48.8 H, Creatinine 1.42 H, Estimated GFR (MDRD) 48.00, BUN/Creatinine Ratio 34.36, Glucose 133.2 H, Calcium 11.36 H, Total Bilirubin 0.39, AST 28.0, ALT 14.0, Alkaline Phosphatase 77.4, Total Creatine Kinase 28.4 L, Troponin I < 0.012, Total Protein 8.62 H, Albumin 4.56, Globulin 4.06, Albumin/Globulin Ratio 1.12 01/21/22 12:43: WBC 11.93 H, RBC 3.90 L, Hgb 11.5 L, Hct 36.3 L, MCV 93.1, MCH 29.5, MCHC 31.7 L, RDW Coeff of Kevin 14.6, Plt Count 261, Immature Gran % (Auto) 0.5, Neut % (Auto) 77.4 H, Lymph % (Auto) 14.2, [place] % (Auto) 5.6, Eos % (Auto) 1.6, Baso % (Auto) 0.7, Neut # (Auto) 9.2 H, Lymph # (Auto) 1.7, [place] # (Auto) 0.7, Eos # (Auto) 0.2, Baso # (Auto) 0.1, Immature Gran # (Auto) 0.1 01/21/22 12:19: RSV Antigen Negative by naat 01/21/22 12:18: Influ A Molecular Assay Negative by naat, Influ B Molecular Assay Negative by naat 01/21/22 10:28: SARS CoV-2 RNA Rapid DOIM Negative ASSESSMENT: Please see below. 1. Generalized weakness 2. Renal azotemia 3. Severe COPD 4. Dementia PLAN: 1. B12 level 2. PT/OT consult 3. 4mg of Decadron IM Plan and coordination of the patient's care discussed in the presence of Hospice Fellow and nurse. SCRIBED BY: LILI RANGEL Carpenter Railcar scribed while in presence of service performed by Dr. Davila/Elle Stewart APRN on 01/22/22 (1400)
[2022-01-22] MEDS: ARICEPT PO SCH (09:39)
[2022-01-22] MEDS ORDERED: ATIVAN IM ONE (10:30)
[2022-01-22] MEDS: ROCEPHIN 1 GM/50 ML D5W 1 GM/50 ML BAG IV SCH (10:34)
[2022-01-22] MEDS: LIDOCAINE HCL 1% SDV IM SCH (10:46)
[2022-01-22] MEDS: ROCEPHIN 1 GM VIAL IM SCH (10:46)
--- NOTE | 2022-01-22 11:04 | RS.BEDDYS ---
Subjective Date of Evaluation: 01/22/22 Diagnosis: Dehydration; generalized weakness, pneumonitis Current Level of Function: This is an 81 year old male. The patient was admitted with dehydration, weakness, and pneumonitis; CXR shows COPD. The patient has intermittent confusion and is currently asking to be discharged from the hospital. The patient reported he resides in his home environment with his . The patient has no significant hx of swallowing deficits. The MIGRATION AGENT will complete a CBSE to determine safer and least restrictive diet. Current Diet: Soft and bite-sized; moderately thick-honey liquids; sips of water Current Subjective/complaints:: The patient was reclined in the bed upon MIGRATION AGENT entry. He denied services initially, however breakfast tray was presented and he was cooperative for evaluation to be completed. The patient was talkative and asked about his discharge frequently. The patient had a congested cough at rest, and intermittent change in vocal quality when talking. When asked about swallowing difficulty, the patient stated, "my pills get stuck sometimes." When asked about swallow difficulty with food/liquids, the patient pointed to upper neck and said it sticks, but I can get it swallowed." Medical History Comments:: Dehydration; confusion with aggressive behavior; Weakness; difficulty swallowing General Information - General Denture Type: Partial- Upper Ability to Follow Directions: Fair Is Patient able to Repeat Directions?: No Oral Expression Ability: No Impairment - Voice Voice Quality: Weak (Gravel-like quality) Voice Loudness: Mildly Soft/Quiet Oral-Facial Assessment - Face Facial Symmetry: Symmetrical Facial Movement: Controlled - Dental/Labial Mouth Occlusion: Normal Teeth Comment: No bottom teeth or dentures Lip Protrusion: Normal Lip Retraction: Normal Puff Cheeks: Normal - Lingual Protrusion: Normal (slight deviation to left) Retraction: Normal Tip Lateralization: Weak Repeated Tip Lateralization: Weak Tip Elevation: Weak Repeated Tip Elevation: Weak Comments: Lingual surface was moist. Lingual movements were mildly slow and presented with decreased tension during lingual movement tasks. Food Presentation - Solids Food Presented: Mechanical Soft (Eggs) Behaviors/Comments: Pt took large bites and self-fed. He demonstrated use of lingual sweep. He also demonstrated multiple swallows and effortful swallows spontaneously. Pt did not follow commands to use safe swallow strategies. Throat clearing and delayed coughs observed throughout trials. MIGRATION AGENT presented sips of thickened liquids to clear residue. Pt had minimal to no oral residue post swallows. Food Presented: Regular (sausage cassy) Behaviors/Comments: Pt took large bites and self-fed. He demonstrated use of lingual sweep. He also demonstrated multiple swallows and effortful swallows spontaneously. Pt did not follow commands to use safe swallow strategies. Throat clearing and delayed coughs observed throughout trials. MIGRATION AGENT presented sips of thickened liquids to clear residue. Pt had minimal to no oral residue post swallows. Food Presented: Pureed (yogurt) Behaviors/Comments: Pt consumed large consecutive bites; no overt s/s of aspiration observed. The patient completed multiple swallows per bite. - Liquids Liquid Presented: Thin (via open cup) Behaviors/Comments: Pt had immediate and delayed throat clears with small sips of thin H20. The patient had delayed coughs with larger sips of thin H20. The patient had no overt s/s of aspiration with ice chips. The patient had delayed swallow initiation with thin liquids up to 5 seconds placing high risk for aspiration with thin liquids. Liquid Presented: Morrison (via open cup) Behaviors/Comments: Pt demonstrated approximately 3-4 seconds delay in swallow initiation. Audible swallow responses with all trials. The patient had moderately decreased LE. Delayed throat clears with 50% of trials, without change in vocal quality or overt coughing, watery eyes. The patient tolerated trials of mildly thick-nectar with soft and bite-sized diet trials. Liquid Presented: Honey (via open cup) Behaviors/Comments: The patient had up to 5 second swallow delay. He demonstrated oral holding with honey-thickened liquids. He also demonstrated dislike of honey-liquids and would not consume other trials. The patient had no overt s/s of aspiration. - Recommendations: Dysphagia Evaluation Dietary Recommendations: Soft and Bite-Sized, Mildly Thick - Morrison Comments:: Please do not send bread textures with soft and bite-sized diet tray. Dysphagia Swallow Precautions/Strategies: Sitting Upright (90 deg), Double Swallow, No Straw, Liquids from Cup, Alternate Liquids/Solids Comments:: Intermittent supervision with meals. All liquids via open cup. Ok for ice chips between meals with oral care routine. Safe swallow/aspiration precautions; medications whole with mildly thick-nectar liquids. - Summary Dysphagia Evaluation Summary: The patient presented with mild-moderate oral and pharyngeal phase deficits. The oral phase demonstrated difficulty with mastication secondary to dentition and general weakness; decreased ROM with chewing pattern. The patient also demonstrated impulsive eating pattern with extra large bite sizes requiring prolonged chewing and multiple swallows per bite of food. He demonstrated lingual sweep and had minimal oral residue. Pharyngeal phase demonstrated moderate difficulty with 3-4 second delay in swallow initiation and multiple swallows per bite of food. Effortful swallow was observed frequently. Laryngeal palpation revealed moderately decreased LE with anterior and superior movements. The patients kyphotic neck posture also increases risks for residue stacking in pharynx; which patient reported residue that clears with additional swallows and liquids. With thin liquids the patient demonstrated overt s/s of aspiration including delayed and immediate coughs/throat clears. With presentations of mildly thick-nectar liquids, the patient demonstrated minimal overt s/s of aspiration. At this time due to dehydration, MIGRATION AGENT recommends upgrade to mildly thick-nectar liquids and continue soft and bite-sized diet. No bread textures on the tray. Medications to be presented whole with thickened liquids. Pt ok for ice chips between meals for comfort with oral care routine. All safe swallow precautions to be utilized with PO intake and intermittent supervision. Further Therapy Indicated?: Yes Comments: Continue to monitor overt s/s of aspiration and encourage swallow exercises to increase LE strength. Rehab Potential: Fair Functional Reporting G Codes: n/a Severity Impairment Rationale: n/a Short Term Goals Goal #1: Tolerate soft and bite-sized diet w/ NTL w/ min to no overt s/s of asp. Goal to be met by: 01/25/22 Goal #2: Pt complete LE exercises given a model to improve airway protection. Goal to be met by: 01/25/22 Goal #3: Pt demonstrate safe swallow/asp precautions with PO intake 90% of opp. Goal to be met by: 01/25/22 Penitentiary Goals Goal #1: Pt tolerate safer and least restrictive diet w/ min to no overt s/s of asp Goal to be met by: 01/25/22 Plan Duration of Treatment: 1 Week Frequency of Treatment: 1x/day Anticipated Discharge Destination: Unsure of discharge placement Comments: Encourage oral care routine - Treatment Code (1) Oropharyngeal dysphagia Code(s): R13.12 - Dysphagia, oropharyngeal phase
[2022-01-22] MEDS ORDERED: ATIVAN IM PRN (16:56)
[2022-01-22] MEDS: ZOLOFT PO SCH (20:35)
[2022-01-23 05:33] LABS: BASOPHILS % (AUTO) 0.3 % (0.0-3.0); EOSINOPHILS % (AUTO) 0.1 % (0.0-7.0); HEMATOCRIT 33.2 % (42.0-52.0); HEMOGLOBIN 10.6 g/dl (14.0-18.0); IMMATURE GRANULOCYTE # (AUTO) 0.1 (0.0-1.0); IMMATURE GRANULOCYTE % (AUTO) 0.4 % (0.0-5.0); LYMPHOCYTES % (AUTO) 16.1 (10.0-50.0); MEAN CORPUSCULAR HEMOGLOBIN 29.3 pg (27.0-31.0); MEAN CORPUSCULAR HGB CONC 31.9 (31.8-35.4); MEAN CORPUSCULAR VOLUME 91.7 fl (80.0-94.0); MONOCYTES % (AUTO) 7.6 (0-10); NEUTROPHILS # (AUTO) 9.5 K/ul (2.0-6.9); NEUTROPHILS % (AUTO) 75.5 % (42.2-75.2); PLATELET COUNT 248 10^3/uL (140-440); RDW COEFFICIENT OF VARIATION 14.8 % (11.6-14.8); RED BLOOD COUNT 3.62 10^6/ul (4.70-6.10); WHITE BLOOD COUNT 12.58 K/ul (4.2-10.2)
[2022-01-23 05:43] LABS: ALANINE AMINOTRANSFERASE 11.8 U/L (0-50); ALBUMIN 4.23 g/dL (3.5-5.0); ALKALINE PHOSPHATASE 64.3 U/L (56-119); BILIRUBIN,TOTAL 0.35 mg/dL (0.2-1.3); CALCIUM 10.65 mg/dL (8.4-10.2); CARBON DIOXIDE 27.1 mmol/L (22-30.0); CHLORIDE 109.1 mmol/L (98-107); CREATININE 1.31 mg/dL (0.60-1.10); GLUCOSE 95.3 mg/dL (74-106); POTASSIUM 3.92 mmol/L (3.5-5.1); SODIUM 142.8 mmol/L (134.5-145); TOTAL PROTEIN 7.7 g/dL (6.3-8.2)
[2022-01-23] MEDS: PROTONIX PO SCH ×2 (06:14→17:25)
[2022-01-23] MEDS: PEPCID PO SCH ×2 (06:15→17:25)
[2022-01-23] MEDS: SODIUM CHLORIDE 1,000 ML IV SCH (06:34)
[2022-01-23] MEDS: ROCEPHIN 1 GM VIAL IM SCH (08:40)
[2022-01-23] MEDS: LIDOCAINE HCL 1% SDV IM SCH (08:40)
[2022-01-23] MEDS: NICODERM 21 MG TD SCH (08:40)
--- NOTE | 2022-01-23 09:28 | HP ---
DATE OF SERVICE: 01/21/22 REASON FOR HOSPITALIZATION/HISTORY OF PRESENT ILLNESS: Sleeping 20 hours/day. Not eating. 2-3 weeks ago cough/congestion and no fever. PAST MEDICAL HISTORY: History of hypokalemia COPD Hypertension CAD Osteoarthritis knee Forgetfulness. PAST SURGICAL HISTORY: Gallbladder Back/neck surgeries times two Heart-stent Right carotid surgery Cardiac cath 11/27/18 Aorta bypass Renal stents CABG 02/02 REVIEW OF SYSTEMS: CONSTITUTIONAL: No fever, Fatigue. HEENT: Sinus drainage, no sore throat. RESPIRATORY: Cough, no congestion. CARDIOVASCULAR: No atypical chest pain for coronary artery disease. No angina, CHF symptoms, palpitations or shortness of breath. GASTROINTESTINAL: No melena or abdominal pain. No GERD. Decreased appetite. GENITOURINARY: No hematuria, no prostatism, no polyuria. FORENSIC EXAMINER: No blackout, Dizziness, no headache, no double vision. GAIT: wheelchair. MUSCULOSKELETAL: Osteoarthritis pain, no joint swelling. ENDOCRINE: No weight loss, no weight gain. SKIN: Not dry, no rash. PSYCHIATRIC: Not anxious, no depression, no suicidal thoughts, no homicidal thoughts. SOCIAL HISTORY: Marital Status: . Alcohol Usage: No. Tobacco Usage: Yes. FAMILY HISTORY: Father , strokes, heart Mother , Cancer lung, Heart Sister 2 MEDICATIONS: Aspirin 81mg Q daily Coreg 12.5mg BID Plavix 75mg Q day Zoloft 200mg Q daily Famotidine 20mg BID Prochlorperazine 10mg BID Aricept 5mg daily Rosuvastatin 20mg Crestor 20mg Zanaflex 4mg at HS Ondansetron 4mg BID Vitamin D Vitamin B Hydrocodone 5/325 BID Namenda 5mg daily ALLERGIES: Codeine Morphine Lisinopril Losartan Ativan Aricept Sabapentin PHYSICAL EXAMINATION: V/S: Pulse 84, blood pressure 102/62, temperature 97.7, oxygen saturation 96%. Height 5'10, weight unable. GENERAL APPEARANCE: Oriented to person and place. HEENT: Dry mucous membranes. Pallor NECK: No JVP, no bruits. RESPIRATORY: Severely decreased breath sounds. Bilateral rhonchi CARDIOVASCULAR: S1, S2, no S3, no murmur. No cyanosis, clubbing. No ascites. GI/ABDOMEN: No tenderness. Bowel sounds are active. EXTREMITIES: edema, pulses +1, equal. FORENSIC EXAMINER: Deep tendon reflexes, sensory, motor and gait all normal. RECTAL: Colocare refused./PROSTATE: 04/08 (3.6). Colonoscopy 2009 Dr. Schaffer ASSESSMENT: 1. Dehydration 2. Generalized weakness 3. Acute pneumonitis 4. Cardiac cath 12/05 Dr. Clark 5. Dyslipidemia 6. Chronic anemia-refuses Gi workup 7. Dementia (vascular) 8. Left Femoral neck fracture 9. Status post right carotid endarterectomy 03/08 Dr. Grace 10.Left carotid endarterectomy 01/05 Dr. Grace 11.Status post Iliac artery stent Dr. Grace. 12.COPD-smoking 13.Status post back surgery 14.Aortic bypass 2009 15.CABG 02/02 16.PAD with Claudication 17.Chronic kidney disease stage III 18.Osteoarthritis knee 19.Chronic bronchitis PLAN: 1. Routine telemetry orders 2. CBC and CMP now and daily 3. Rapid Flu A and B 4. Rapid RSV 5. Chest x-ray 6. U/A with culture 7. Normal saline IV at 75cc an hour 8. Oxygen at 1-2 liters nasal canula 9. Blood culture times two 10.Rocephin 1 gram IV daily 11.Zithromax 500mg PO daily times three days 12.DO NOT INTUBATE 13.4mg Decadron IM times one 14. Regular diet TIME SPENT: More than 70 minutes. MTDD
[2022-01-23] MEDS: CRESTOR PO SCH (10:56)
[2022-01-23] MEDS: ASPIRIN CHEWABLE PO SCH (10:56)
[2022-01-23] MEDS: ARICEPT PO SCH (10:57)
[2022-01-23] MEDS: PLAVIX PO SCH (10:57)
[2022-01-23] MEDS: ZITHROMAX PO SCH (10:57)
[2022-01-23] MEDS: COREG PO SCH ×2 (10:57→17:25)
[2022-01-23] MEDS: NAMENDA PO SCH (10:57)
--- NOTE | 2022-01-23 11:03 | CT ---
EXAM: CT Head with and without contrast. HISTORY: Altered mental status. COMPARISON: 07/15/2019. TECHNIQUE: Multiple axial images of the brain were obtained from the skull base through the vertex p rior to and following intravenous administration of 75 mL Visipaque 320, low osmolar. Multiplanar re formats were provided. FINDINGS: There is no intracranial hemorrhage or extraaxial collection. The kearney-white differentiat ion is maintained without evidence for acute large vascular territory infarction. There are areas of periventricular and subcortical white matter low attenuation. No areas of abnormal enhancement are identified. Atherosclerotic calcifications present. The intracranial portion of the right vertebral artery is not seen. Left vertebral artery dominant and patent. Basilar artery patent. The cortica l sulci and cerebral ventricles are symmetrically enlarged. The basal cisterns are well visualized. There is no hydrocephalus, mass effect, or midline shift. The paranasal sinuses and mastoid air nas ls are clear. The calvarium is intact. Since the prior study, there has been no significant interva l change. IMPRESSION: 1. No acute intracranial abnormality. 2. Chronic small vessel ischemic changes and atrophy. 3. Nonvisualized intracranial right vertebral artery which may be diminutive or occluded. All CT scans are performed using dose optimization techniques as appropriate to the performed exam an d include at least one of the following: Automated exposure control, adjustment of the mA and/or kV according t o size, and the use of iterative reconstruction technique.
--- NOTE | 2022-01-23 13:45 | US ---
EXAM: Carotid ultrasound HISTORY: Increasing confusion COMPARISON: None TECHNIQUE: Carotid ultrasound was performed using Duplex imaging with greyscale, color doppler, spec tral doppler imaging performed. FINDINGS: Right carotid: There is moderate atherosclerotic plaque in the common carotid and bulb/internal paz tid artery. Peak systolic velocity measurement in the right internal carotid artery is 0.58 meters p er second. End-diastolic velocity measurement in the right internal carotid artery is 0.13 meters pe r second. Right internal to common carotid artery peak systolic velocity ratio is 0.7. Flow in the right vertebral artery is antegrade. Left carotid: There is moderate atherosclerotic plaque in the common carotid and bulb/internal carot id artery. Peak systolic velocity measurement in the left internal carotid artery is 0.56 meters per second. End-diastolic velocity measurement in the left internal carotid artery is 0.16 meters per s econd. Left internal to common carotid artery peak systolic velocity ratio measures 0.9. Flow in th e left vertebral artery is antegrade. IMPRESSION: 1. Right internal carotid: Peak systolic velocity corresponds with mild (less than 50%) stenosis. M oderate atherosclerotic plaquing 2. Left internal carotid: Peak systolic velocity corresponds with mild (less than 50%) stenosis. Mo derate atherosclerotic plaquing
[2022-01-23] MEDS: ZOLOFT PO SCH (20:02)
[2022-01-24 05:24] VITALS: BP 136/78; TEMP 99
[2022-01-24] MEDS: PEPCID PO SCH (05:51)
[2022-01-24] MEDS: PROTONIX PO SCH (05:51)
[2022-01-24 06:16] LABS: BASOPHILS # (AUTO) 0.1 K/uL (0-0.2); BASOPHILS % (AUTO) 0.9 % (0.0-3.0); EOSINOPHILS # (AUTO) 0.2 K/ul (0.0-0.7); EOSINOPHILS % (AUTO) 1.6 % (0.0-7.0); HEMATOCRIT 34.6 % (42.0-52.0); HEMOGLOBIN 11.1 g/dl (14.0-18.0); IMMATURE GRANULOCYTE # (AUTO) 0.1 (0.0-1.0); IMMATURE GRANULOCYTE % (AUTO) 0.6 % (0.0-5.0); LYMPHOCYTES # (AUTO) 2.1 K/uL (0.60-3.4); LYMPHOCYTES % (AUTO) 15.6 (10.0-50.0); MEAN CORPUSCULAR HEMOGLOBIN 29.8 pg (27.0-31.0); MEAN CORPUSCULAR HGB CONC 32.1 (31.8-35.4); MONOCYTES % (AUTO) 7.7 (0-10); NEUTROPHILS # (AUTO) 9.9 K/ul (2.0-6.9); NEUTROPHILS % (AUTO) 73.6 % (42.2-75.2); PLATELET COUNT 271 10^3/uL (140-440); RDW COEFFICIENT OF VARIATION 14.9 % (11.6-14.8); RED BLOOD COUNT 3.72 10^6/ul (4.70-6.10); WHITE BLOOD COUNT 13.41 K/ul (4.2-10.2)
[2022-01-24 06:30] LABS: ALANINE AMINOTRANSFERASE 13.6 U/L (0-50); ALBUMIN 4.3 g/dL (3.5-5.0); ALKALINE PHOSPHATASE 71.1 U/L (56-119); BILIRUBIN,TOTAL 0.48 mg/dL (0.2-1.3); BLOOD UREA NITROGEN 32.1 mg/dL (9-20); CALCIUM 10.52 mg/dL (8.4-10.2); CARBON DIOXIDE 28.9 mmol/L (22-30.0); CHLORIDE 105.7 mmol/L (98-107); CREATININE 1.28 mg/dL (0.60-1.10); GLUCOSE 92.2 mg/dL (74-106); POTASSIUM 3.9 mmol/L (3.5-5.1); SODIUM 140.4 mmol/L (134.5-145); TOTAL PROTEIN 7.93 g/dL (6.3-8.2)
[2022-01-24] MEDS: PLAVIX PO SCH (09:12)
[2022-01-24] MEDS: CRESTOR PO SCH (09:12)
[2022-01-24] MEDS: ASPIRIN CHEWABLE PO SCH (09:12)
[2022-01-24] MEDS: NAMENDA PO SCH (09:12)
[2022-01-24] MEDS: COREG PO SCH (09:12)
[2022-01-24] MEDS: ARICEPT PO SCH (09:12)
[2022-01-24] MEDS: NICODERM 21 MG TD SCH (09:13)
--- NOTE | 2022-01-24 09:47 | PCM.PROG ---
Attending Provider: ATTENDING PROVIDER: Dr. JORDON DAVILA MD This patient is seen with Elle Stewart, Nurse Practitioner. DATE OF SERVICE: 01/24/22 SUBJECTIVE: This 81 year old /WHITE M was hospitalized 01/21/22. The patient states that he will not eat hospital food and will not leave IV fluids connected. He is having confusion consistent with sundowner. CT fo the brain and carotid scan both show signs of aging. REVIEW OF SYSTEMS: CONSTITUTIONAL: No night sweats. No fatigue, malaise, lethargy. No fever or chills. Weakness. HEENT: Eyes: No visual changes. No eye pain. No eye discharge. ENT: No runny nose. No epistaxis. No sinus pain. No odynophagia. No congestion. RESPIRATORY: Cough, no congestion. No hemoptysis. No shortness of breath. CARDIOVASCULAR: No angina symptoms. No CHF symptoms. No atypical chest pain for CAD. No palpitations. No orthopnea.. GASTROINTESTINAL: No abdominal pain. No nausea or vomiting. No diarrhea or constipation. No hematemesis. No hematochezia. GENITOURINARY: No urgency. No frequency. No dysuria. No hematuria. No obstructive symptoms. No discharge. No pain. No significant abnormal bleeding. MUSCULOSKELETAL: No musculoskeletal pain; no joint swelling. NEUROLOGICAL: Confusion. No headache. No neck pain. No syncope. No seizures. No dizziness. PSYCHIATRIC: Not anxious. No depression. No suicidal thoughts. No homicidal thou ghts. SKIN: No rash. No lesions. No wounds. ENDOCRINE: No unexplained weight loss. No weight gain. HEMATOLOGIC/LYMPHATIC: No anemia. No purpura. No petechiae. No prolonged or excessive bleeding. No palpable lymph nodes. PHYSICAL EXAMINATION: GENERAL: The patient is awake, alert and oriented to person and place, lying in bed in no distress. VITAL SIGNS: Temperature 99.0 F, Pulse 71, Respiratory Rate 20, BP 136/78, Pulse Ox 95% HEENT: Head normocephalic, atraumatic. Eyes: Extraocular muscles are intact. Pupils are equal, round and reactive to light and accommodation. Ears: No lesions. Nose appeared normal. Throat: No exudate or erythema. NECK: Supple. No JVD, no carotid bruit. No lymphadenopathy or thyromegaly. LUNGS: Severely diminished breath sounds. Clear to auscultation. Percussion note normal. Chest symmetrical. HEART: S1, S2, no S3. No murmurs. No cyanosis or clubbing. No ascites. Pulses: Dorsalis pedis and posterior tibial pulses +1 to +2 both sides. ABDOMEN: Soft. Non-tender. Bowel sounds active. No CVA tenderness. No mass felt. EXTREMITIES: No edema. Full range of motion of all extremities, equal. NEUROLOGIC: No focal deficit. Cranial nerves II through XII are grossly intact. No headache. No double vision. SKIN: Not dry. Intact. Turgor-normal. LYMPHATIC: No palpable lymph nodes/no lymphedema. MUSCULOSKELETAL: Normal joints with no swelling. Muscle tone is normal. LAB REVIEW: 01/24/22 06:00 01/24/22 06:00 01/24/22 06:00: Sodium 140.4, Potassium 3.90, Chloride 105.7, Carbon Dioxide 28.9, Anion Gap 9.70, BUN 32.1 H, Creatinine 1.28 H, Estimated GFR (MDRD) 54.00, BUN/Creatinine Ratio 25.07, Glucose 92.2, Calcium 10.52 H, Total Bilirubin 0.48, AST 31.0, ALT 13.6, Alkaline Phosphatase 71.1, Total Protein 7.93, Albumin 4.30, Globulin 3.63, Albumin/Globulin Ratio 1.18 01/24/22 06:00: WBC 13.41 H, RBC 3.72 L, Hgb 11.1 L, Hct 34.6 L, MCV 93.0, MCH 29.8, MCHC 32.1, RDW Coeff of Kevin 14.9 H, Plt Count 271, Immature Gran % (Auto) 0.6, Neut % (Auto) 73.6, Lymph % (Auto) 15.6, Bent % (Auto) 7.7, Eos % (Auto) 1.6, Baso % (Auto) 0.9, Neut # (Auto) 9.9 H, Lymph # (Auto) 2.1, Bent # (Auto) 1.0, Eos # (Auto) 0.2, Baso # (Auto) 0.1, Immature Gran # (Auto) 0.1 ASSESSMENT: Please see below. 1. Dehydration, improved 2. Dementia with behavioral disturbances 3. Generalized weakness. PLAN: 1. 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 He is stable for discharge from out point of view. He may benefit from nuring home placement and that will be discussed with the . 2. Medications has remained unchanged. Plan and coordination of the patient's care discussed in the presence of Ui U[employer] Developer and nurse. SCRIBED BY: LILI RANGEL Umbrella Supervisor scribed while in presence of service performed by Dr. Davila/Elle Stewart APRN on 01/24/22 ([id number])
--- NOTE | 2022-01-28 08:07 | ECHO2D ---
Date of Exam: 01/23/2022 Ordering Physician: DR. JORDON DAVILA Room #: [id number] Reason for Echo: RESPIRATORY FAILURE, SOB M-Mode Normal Adult Results LV Dimensions Normal Adult Results AoV Opening excursions >1.6 >1.6 LVEDD-base- 3.5-5.8 5.2 Ao root dimensions 2.0-3.7 4.0 LVESD-base- 3.1-4.6 L. Atrium dimensions 1.9-3.8 4.4 Post. Wall thickness 0.8-1.1 1.1 IV septum (thickness) 0.7-1.2 1.2 Post. Wall excursion 0.72-1.3 0.9 Septal motion 0.2 Systolic motion R. Ventricular cavity 1.5-2.0 3.5 LVEF 60% 35-40% Paradoxical septal wall motion NORMAL 2-D : ENLARGED LEFT ATRIAL CAVITY AND RIGHT VENTRICLE CAVITY--HYPOKINETIC SEPTAL WALL--CALCIFIC MITRAL VALVE ANNULUS--NO STENOTIC VALVES NOTED--NO EFFUSION, NO THROMBUS--LEFT VENTRICLE SIZE NORMAL M-MODE: MV: CALCIFIC MITRAL VALVE ANNULUS AV: NORMAL TV: NORMAL PV: CHAMBER SIZE: ENLARGED LEFT ATRIAL AND RIGHT VENTRICLE CAVITIES, MILDLY ENLARGED AORTIC ROOT WALL MOTION: AKINETIC TO HYPOKINETIC SEPTAL WALL PERICARDIUM: NORMAL INTERPRETATION: 1. BORDERLINE LEFT VENTRICLE HYPERTROPHY 2. ENLARGED LEFT ATRIAL AND RIGHT VENTRICLE CAVITIES 3. HYPOKINETIC SEPTAL WALL WITH EJECTION FRACTION 35-40% 4. CALCIFIC MITRAL VALVE ANNULUS 5. VALVES NORMAL MTDD
--- NOTE | 2022-01-30 14:02 | PN ---
DATE OF SERVICE: 01/21/22 ADMIT NOTE SUBJECTIVE: 81 year old white male was seen in the office with some weight loss, generalized weakness, dehydration and shortness of breath. The patient was seen and examined with the Nurse Practitioner and plan was carried out. He is heavy smoker and has multiple other medical problems like severe peripheral arterial disease, coronary artery disease, severe chronic lung disease, malnutrition. TIME SPENT: More than 30 minutes. Plan and coordination of the patient's care discussed in the presence of nurse. GARLAND
--- NOTE | 2022-01-30 14:04 | PN ---
DATE OF SERVICE: 01/22/22 SUBJECTIVE: The patient was seen and examined with the Nurse Practitioner. The patient's hydration status seems to have improved. Kidney functions are somewhat better. Initially the patient's GFR on admission was 48cc per hour, now today it is 64cc per hour. Hydration status has improved. Cardiac markers are negative. Echocardiogram to evaluate LV function. The patient is confused at times, wants to go home. TIME SPENT: More than 30 minutes. Plan and coordination of the patient's care discussed in the presence of nurse. GARLAND
--- NOTE | 2022-01-30 14:12 | PN ---
DATE OF SERVICE: 01/23/22 SUBJECTIVE: 81 year old white male hospitalized with renal azotemia, generalized weakness, dehydration and acute bronchitis. The patient's condition has improved. He is looking a lot better. Hydration status has improved. Coughing much less. REVIEW OF SYSTEMS: CONSTITUTIONAL: No night sweats. Weakness and fatigue still persists. No fever or chills. HEENT: Eyes: No visual changes. No eye pain. No eye discharge. ENT: No runny nose. No epistaxis. No sinus pain. No sore throat. No odynophagia. No congestion. RESPIRATORY: No cough, no congestion. No hemoptysis. No shortness of breath. CARDIOVASCULAR: No angina symptoms. No CHF symptoms. No atypical chest pain for CAD. No palpitations. No PND. No orthopnea. GASTROINTESTINAL: No abdominal pain. No nausea or vomiting. No diarrhea or constipation. No hematemesis. No hematochezia. Appetite improved. Swallowing seems to be better. GENITOURINARY: No urgency. No frequency. No dysuria. No hematuria. No obstructive symptoms. No discharge. No pain. No significant abnormal bleeding. MUSCULOSKELETAL: No musculoskeletal pain; no joint swelling. NEUROLOGICAL: No headache. No neck pain. No syncope. No seizures. No dizziness. PSYCHIATRIC: Not anxious. No depression. No suicidal thoughts. No homicidal thoughts. SKIN: No rash. No lesions. No wounds. ENDOCRINE: No unexplained weight loss. No weight gain. HEMATOLOGIC/LYMPHATIC: No anemia. No purpura. No petechiae. No prolonged or excessive bleeding. No palpable lymph nodes. PHYSICAL EXAMINATION: VITAL SIGNS: Temperature 97.3, pulse 80, respiratory rate 18, blood pressure 124/78 and pulse ox 96% on 2 liters. HEENT: Head normocephalic, atraumatic. Eyes: Extraocular muscles are intact. Pupils are equal, round and reactive to light and accommodation. Ears: No lesions. Nose appeared normal. Throat: No exudate or erythema. NECK: Supple. No JVD, no carotid bruit. No lymphadenopathy or thyromegaly. LUNGS: Decreased breath sounds but clear to auscultation. Percussion note normal. Chest symmetrical. HEART: S1, S2, no S3. No murmurs. No cyanosis or clubbing. No ascites. Pulses: Dorsalis pedis and posterior tibial pulses +1 to +2 bilaterally. ABDOMEN: Soft. Nontender. Bowel sounds active. No CVA tenderness. No mass felt. EXTREMITIES: No edema. Full range of motion of all extremities, equal. Emaciated. NEUROLOGIC: No focal deficit. Cranial nerves II through XII are grossly intact. No headache. No double vision. SKIN: Not dry. Intact. Turgor - normal. LYMPHATIC: No palpable lymph nodes/no lymphedema. MUSCULOSKELETAL: Normal joints with no swelling. Muscle tone is normal. LABS: hgb 10.6, hct 33, WBC 12,000 normal differential, creatinine 1.3, BUN 40, potassium 3.9 ASSESSMENT: 1. Dehydration, seems to be resolving. Hydration status seems to have improved, skin turgor better. 2. Swallowing better, he has been on Protonix 3. Acute bronchitis with COPD exacerbation seems to be better with Zithromax, Rocephin with steroids. 4. Chronic anemia 5. Peripheral arterial disease 6. Osteoporosis 7. Malnutrition CONDITION: Improved. PLAN: 1. The patient was advised to quit smoking. 2. Also was explained about him being under weight and advised to eat multiple small meals. 3. Cardiac markers are negative. 4. Echocardiogram today done showed practically hypokinetic recurrent septal wall motion was ejection fraction 35-40%. The patient's ejection fraction has deteriorated, LV size is normal. Valvular structures are normal. The patient has a lot of calcified mitral valve anulus along with aortic valve calcification, no stenosis. TIME SPENT: More than 30 minutes. Plan and coordination of the patient's care discussed in the presence of nurse. GARLAND
--- NOTE | 2022-01-30 14:37 | PN ---
ADMISSION DAY: Level 5 REST OF THEM: Intermediate FINAL DAY: D as in discharge. MTDD
--- NOTE | 2022-01-30 14:37 | PN ---
DATE OF SERVICE: 01/24/22 SUBJECTIVE: 81 year old white male hospitalized with dehydration, acute bronchitis and generalized weakness, generalized overall deterioration of his overall medical status with multiple endstage medical problems like severe chronic lung disease, severe peripheral arterial disease. The patients condition seems to have improved. Hydration status has improved. His swallowing is much better. Going to be discharged home. Discharged plan was carried out with antibiotics, steroids. Advised to quit smoking, counseling done for smoking. Discussed extra food supplements like Boost are advised. The patient's discharge plan and discharge summary discussed with the Nurse Practitioner. TIME SPENT: More than 30 minutes. Plan and coordination of the patient's care discussed in the presence of nurse. GARLAND
--- NOTE | 2022-02-14 15:25 | DS ---
DATE OF SERVICE: 01/21/22 FINAL DIAGNOSIS: 1. Dehydration 2. Failure to thrive 3. Dementia with behavioral disturbances 4. Generalized weakness HOSPITAL COURSE: This is an 81 year old white male who was a direct admit from our office. He presented to the office, his stated he was lethargic. When we entered the exam room he was asleep on the exam bed. She said that he had not been eating at home and had been increasingly weak. He was hard to arouse and could hardly get him out of bed. We admitted him and placed him on IV fluids, normal saline. We did a CT of the brain and a carotid scan both of which showed signs of normal aging. Covid and flu tests were negative. Renal function was increased initially showing dehydration and this improved with slow IV fluids. He did have behaviors in the evening that were worsen consistent with sun-downers syndrome; during the day he was intermittently confused. He refused to leave his IV in his arm. He also refused to eat the hospital food. He was demanding to go home. The said that she was ready to take him home. We encouraged her to possibly place him in a intermediate and the declined. We did not change any of his medications. He did work with therapy minimally. The refused home health for PT/OT at home. PROGNOSIS: Poor Patient is very noncompliant. His is noncompliant as well. DISCHARGE INSTRUCTIONS: We will discharge him in stable condition and follow up with him next week in the office. TIME SPENT: More than 60 minutes. GARLAND
== END 2022-01-24 11:42 | disposition home or self-care (01) | DRG 197 ==
LOC: LAB 10:13 → MEDSURG A 11:46
PROVIDERS: ADMIT Internal Medicine; ATTEND Internal Medicine
DX: J84.114 Acute interstitial pneumonitis; E78.5 Hyperlipidemia, unspecified; J44.9 Chronic obstructive pulmonary disease, unspecified; R62.7 Adult failure to thrive; Z79.899 Other long term (current) drug therapy; E86.0 Dehydration; E46 Unspecified protein-calorie malnutrition; Z79.82 Long term (current) use of aspirin; Z20.822 Contact with and (suspected) exposure to COVID-19; I25.10 Atherosclerotic heart disease of native coronary artery without angina pectoris; R13.10 Dysphagia, unspecified; M81.0 Age-related osteoporosis without current pathological fracture; R79.89 Other specified abnormal findings of blood chemistry; J41.0 Simple chronic bronchitis; F17.210 Nicotine dependence, cigarettes, uncomplicated; Z96.0 Presence of urogenital implants; I73.9 Peripheral vascular disease, unspecified; D64.9 Anemia, unspecified; F03.911 Unspecified dementia, unspecified severity, with agitation; J20.9 Acute bronchitis, unspecified; Z51.81 Encounter for therapeutic drug level monitoring; M62.81 Muscle weakness (generalized); N18.30 Chronic kidney disease, stage 3 unspecified